=== PATIENT | female | born 1965 | race Caucasian/White ===

== ENCOUNTER 2020-03-21 12:38 | Emergency (ER) | payer OTHER ==
[~2020-03-21] VITALS: Ht 157.5 cm; Wt 49.9 kg
[~2020-03-21 12:38] MED LIST: ATRIPLA TABLET1 EACH PO; AZITHROMYCIN 2250 MG PO; AZITHROMYCIN 6600 M1 PO; BACTRIM DS TAB1 EACH PO; DIFLUCAN PO; FAMCICLOVIR500 MG PO; KEFLEX250 MG PO; LANTUS SC; LEVEMIR SUBQ; MEPRON750 MG/5 M PO; METFORMIN HCL500 MG PO; NEURONTIN 300300 M1 PO; NORVIR100 MG; NOVOLOG100 UNIT/1 SQ; NYSTATIN 1100000 U/M PO; OMEPRAZOLE40 MG PO; PERCOCET 5-3251 EACH PO; PREZISTA800 MG; PRILOSEC 20 MG20 MG PO; PROTONIX40 M2 PO; TRUVADA1 EAC1; VALCYTE450 MG; VITAMIN D1000 UNI1 PO
[2020-03-21] MEDS ORDERED: LANTUS SUBQ (12:49)
[2020-03-21] MEDS ORDERED: NOVOLIN R100 UNIT/1 SUBQ (12:50)
[2020-03-21 13:32] LABS: ANION GAP 8 mmol/L (7-16); BUN 14 mg/dL (7-18); CALCIUM 8.6 mg/dL (8.5-10.1); CHLORIDE 95 mmol/L (98-107); CO2 25 mmol/L (21-32); CREATININE 1.1 mg/dL (0.6-1.0); GLUCOSE 486 mg/dL (74-106); POTASSIUM 4.6 mmol/L (3.5-5.1); SODIUM 128 mmol/L (136-145)
[2020-03-21 13:39] LABS: ALBUMIN 3.2 g/dL (3.4-5.0); MAGNESIUM 1.9 mg/dL (1.8-2.4); SGOT 18 U/L (15-37); SGPT 12 U/L (30-65); TOTAL BILIRUBIN 0.7 mg/dL (0.2-1.0); TOTAL PROTEIN 7.2 g/dL (6.4-8.2); TROPONIN-I <0.06 ng/mL (<0.06)
[2020-03-21 13:44] LABS: ABSOLUTE NEUTROPHILS 4.9 thou/uL (1.4-8.2); EOSINOPHILS 0.9 % (0.0-3.0); HEMATOCRIT 40.4 % (37.0-47.0); HEMOGLOBIN 13.5 gm/dL (12.0-15.0); LYMPHOCYTES 23.6 % (24.0-44.0); MCH 31.9 pg (26.0-34.0); MCHC 33.4 g/dL (28.0-37.0); MCV 95.4 fL (80.0-100.0); MONOCYTES 7.6 % (1.0-8.0); PLATELET COUNT 292 thou/uL (150-400); POLYS 66.9 % (36.0-66.0); RBC 4.23 mil/uL (4.20-5.00); RDW 14.1 % (10.5-14.5); WBC 7.3 thou/uL (4.0-11.0)
[2020-03-21] MEDS ORDERED: AMOXICILLIN875 MG PO (14:14)
[2020-03-21] MEDS ORDERED: ATIVAN0.5 M1 PO (14:14)
[2020-03-21] MEDS ORDERED: MECLIZINE HCL25 M1 PO (14:15)
[2020-03-21] MEDS ORDERED: CORTISPORIN OTI10 M2 OTIC (14:17)
[2020-03-21 15:25] VITALS: BP 173/99
--- NOTE | 2020-03-23 08:22 | EKG ---
[facility] [address] ELECTROCARDIOGRAM REPORT Name: CORETTA ENNIS Room #: DEP [facility]#: [id number] Admission: 03/21/20 Attend Phys: Discharge: 03/21/20 Date of : 65 Report #: [id number] THIS REPORT FOR: cc: FAM - Family physician unknown FAM - Family physician unknown Bernardino Pruett MD [facility] THIS REPORT FOR: //name// [facility] ED Test Date: 2020-03-21 Test Time: 13:32:29 Pat Name: CORETTA ENNIS Department: Room: Gender: Resource Efficiency Manager: [facility] : 1965 Requested By: Grant Thakur Order Number: [id number] MD: Bernardino Pruett Measurements Intervals [place] Rate: 70 P: 27 AR: 192 QRS: -41 QRSD: 93 T: 40 QT: 410 QTc: 443 Interpretive Statements Sinus rhythm Inferior infarct, old Anteroseptal infarct, old Compared to ECG 10/09/2010 06:51:46 Left-axis deviation no longer present Q waves are more prominent Electronically Signed On 03-23-2020 8:21:58 CDT by Bernardino Pruett [email or web address] <ELECTRONICALLY SIGNED> By: Bernardino Pruett MD, [facility] 03/23/20 0821 1332 1332 Bernardino Pruett MD, [facility] /EPI
== END 2020-03-21 15:27 | disposition home or self-care (01) ==
LOC: ER 12:38
PROVIDERS: Emergency Medicine
DX: H66.92 Otitis media, unspecified, left ear (principal); E11.65 Type 2 diabetes mellitus with hyperglycemia; E87.1 Hypo-osmolality and hyponatremia; H81.392 Other peripheral vertigo, left ear; Z21 Asymptomatic human immunodeficiency virus [HIV] infection status; Z86.2 Personal history of diseases of the blood and blood-forming organs and certain disorders involving the immune mechanism; Z79.4 Long term (current) use of insulin; Z79.899 Other long term (current) drug therapy; Z20.828 Contact with and (suspected) exposure to other viral communicable diseases

== ENCOUNTER 2020-06-25 17:17 | Emergency (ER) | payer OTHER ==
[~2020-06-25 17:17] MED LIST changes: +AMOXICILLIN875 MG PO; +ATIVAN0.5 M1 PO; +CORTISPORIN OTI10 M2 OTIC; +LANTUS SUBQ; +MECLIZINE HCL25 M1 PO; +NOVOLIN R100 UNIT/1 SUBQ
[2020-06-25 17:32] VITALS: BP 147/78
== END 2020-06-25 18:51 | disposition left against medical advice (07) ==
LOC: ER 17:17
DX: R10.32 Left lower quadrant pain (principal); Z53.21 Procedure and treatment not carried out due to patient leaving prior to being seen by health care provider

== ENCOUNTER 2020-07-01 04:15 | Emergency (ER) | payer OTHER ==
[~2020-07-01] VITALS: Ht 152.4 cm; Wt 56.7 kg
--- NOTE | ~2020-07-01 | EMS ---
[place] [address] EMS Patient Care Report Name: CORETTA ENNIS Room #: PRE M.R.#: [id number] Admission: Attend Phys: Discharge: Date of : 65 Report #: [id number] THIS REPORT FOR: //name// Report Transmitted: 07/01/2020 05:24 EMS Care Summary [place], [place]/[facility] Incident [id number] @ 07/01/2020 03:50 Incident Location [address] [place] [address] Patient CORETTA ENNIS Female, 54 Years 1965 Patient Address [address] [place] [address] Patient History Diabetes,Human Immunodeficiency Virus Disease (HIV/AIDS),Genital Herpes, Patient Allergies Lisinopril, Patient Medications Insulin, Chief Complaint vomiting Disposition Transported No Lights/[place] Dispatch Reason Headache Transported To [facility] Narrative pt found sitting upright on couch and alert. pt a&ox4 gcs 15 and id not present in apparent distress. pt complained of nausea and vomiting x1 day. pt requested to be transported to [facility]. pt stated she could walk to ambulance. pt was assisted into ambulance. pt was transferred onto ems cot and was [place] [address] EMS Patient Care Report Name: CORETTA ENNIS Room #: [facility].R.#: [id number] Admission: Attend Phys: Discharge: Date of : 65 Report #: [id number] semi fowlers position without incident. pt was transported non emergent. pt was given an emesis bucket. pt stated she self administered 4mg zofran information technology teacher of ems. pt vomited into bucket. transport was uneventful and pt rested on ems cot. pt care was transferred to appropriate staff and ems goes back in service. pts purse and phone were left with pt. Initial Vitals @04:00P: 104,R: 20,BP: 190/92,Pain: 0/10,GCS: 15,SpO2: 98,Revised Trauma: 12, @04:10P: 90,R: 20,BP: 188/92,GCS: 15,SpO2: 98,Revised Trauma: 12, Assessments @03:56MENTAL:No Abnormalities,SKIN:No Abnormalities,HEENT:Head/Face: No Abnormalities,Eyes: No Abnormalities,Neck/Airway: No Abnormalities,LUNG SOUNDS:General: Vomiting,General: Nausea,Left Upper: No Abnormalities,Right Upper: No Abnormalities,Left Lower: No Abnormalities,Right Lower: No Abnormalities,ABDOMEN:General: Vomiting,General: Nausea,Left Upper: No Abnormalities,Right Upper: No Abnormalities,Left Lower: No Abnormalities,Right Lower: No Abnormalities,PELVIS//GI:No Abnormalities,EXTREMITIES:Left Arm: No Abnormalities,Right Arm: No Abnormalities,Left Leg: No Abnormalities,Right Leg: No Abnormalities,PULSE:NEURO:No Abnormalities,@04:02MENTAL:No Abnormalities,SKIN:No Abnormalities,HEENT:Head/Face: No Abnormalities,Eyes: No Abnormalities,Neck/Airway: No Abnormalities,LUNG SOUNDS:General: No Abnormalities,Left Upper: No Abnormalities,Right Upper: No Abnormalities,Left Lower: No Abnormalities,Right Lower: No Abnormalities,ABDOMEN:General: No Abnormalities,Left Upper: No Abnormalities,Right Upper: No Abnormalities,Left Lower: No Abnormalities,Right Lower: No Abnormalities,PELVIS//GI:No Abnormalities,EXTREMITIES:Left Arm: No Abnormalities,Right Arm: No Abnormalities,Left Leg: No Abnormalities,Right Leg: No Abnormalities,PULSE:NEURO:No Abnormalities, Impression Vomiting Procedures @03:56ALS AssessmentResponse: UnchangedSucceeded Timeline 03:49,Call Received 03:49,Dispatch Notified 03:50,Dispatched 03:52,En Route 03:55,On Scene 03:56,At Patient 03:56,ALS Assessment,Response: UnchangedSucceeded, 04:00,BP: 190/92 M,PULSE: 104,RR: 20 R,SPO2: 98 Ox,ETCO2: ,BG: ,PAIN: 0,GCS: 15, [place] [address] EMS Patient Care Report Name: CORETTA ENNIS Room #: PRE ER M.R.#: [id number] Admission: Attend Phys: Discharge: Date of : 65 Report #: [id number] 04:02,Depart Scene 04:10,BP: 188/92 M,PULSE: 90,RR: 20 R,SPO2: 98 Ox,ETCO2: ,BG: ,PAIN: ,GCS: 15, 04:12,At Destination 04:20,Call Closed Disclaimer v1.1 Copyright 2020 [employer] This EMS Care Summary contains data elements from the applicable legal record (which may be displayed differently). It is designed to provide pertinent information for the following purposes: continuity of care, clinical quality, and state data reporting. The complete legal record is available to ED staff and administrators of the receiving hospital in [employer] Patient Tracker. All data is provided "as is."
[2020-07-01] MEDS ORDERED: metformin PO (05:08)
[2020-07-01] MEDS ORDERED: ZOFRAN4 MG PO (05:09)
[2020-07-01] MEDS ORDERED: [UNRECOGNIZED DRUG - REMARK] PO (05:11)
[2020-07-01 05:18] LABS: ABSOLUTE NEUTROPHILS 8.8 thou/uL (1.4-8.2); BASOPHILS 0.7 % (0.0-2.0); EOSINOPHILS 0.8 % (0.0-3.0); HEMOGLOBIN 14.7 gm/dL (12.0-15.0); LYMPHOCYTES 14.8 % (24.0-44.0); MCH 31.9 pg (26.0-34.0); MCHC 33.4 g/dL (28.0-37.0); MCV 95.5 fL (80.0-100.0); MONOCYTES 3.4 % (1.0-8.0); PLATELET COUNT 315 thou/uL (150-400); POLYS 80.3 % (36.0-66.0); RDW 14.2 % (10.5-14.5)
[2020-07-01 07:35] LABS: ALBUMIN 3.1 g/dL (3.4-5.0); ANION GAP 8 mmol/L (7-16); BUN 15 mg/dL (7-18); CALCIUM 8.5 mg/dL (8.5-10.1); CHLORIDE 104 mmol/L (98-107); CO2 24 mmol/L (21-32); CREATININE 0.8 mg/dL (0.6-1.0); DIRECT BILIRUBIN < 0.1 mg/dL (<0.1-0.2); GLUCOSE 309 mg/dL (74-106); LIPASE 65 U/L (73-393); POTASSIUM 4.1 mmol/L (3.5-5.1); SGOT 9 U/L (15-37); SGPT 10 U/L (30-65); SODIUM 136 mmol/L (136-145); TOTAL BILIRUBIN 0.4 mg/dL (0.2-1.0); TOTAL PROTEIN 6.5 g/dL (6.4-8.2)
[2020-07-01] MEDS ORDERED: TRAMADOL 50 MG50 MG PO (08:34)
[2020-07-01] MEDS ORDERED: REGLAN 5 MG TAB5 MG PO (08:34)
[2020-07-01 08:35] VITALS: BP 167/89
[2020-07-01 08:39] LABS: URINE BILIRUBIN NEGATIVE (Negative); URINE BLOOD TRACE (Negative); URINE CLARITY CLEAR; URINE COLOR YELLOW; URINE GLUCOSE-RANDOM* 3+ (Negative); URINE KETONES 1+ (Negative); URINE LEUKOCYTES-REFLEX NEGATIVE (Negative); URINE NITRITE-REFLEX NEGATIVE (Negative); URINE PROTEIN (DIPSTICK) 2+ (Negative)
[2020-07-01 08:53] LABS: CASTS None Seen /LPF (None Seen); SQUAMOUS 4-10 Moderate /LPF (0-3)
[2020-07-01 08:54] LABS: BACTERIA-REFLEX None Seen /HPF (None Seen); CRYSTALS None Seen /LPF (None Seen); URINE RBC 0-2 Rare /HPF (0-2); URINE WBC-REFLEX 0-5 Rare /HPF (0-5)
== END 2020-07-01 08:35 | disposition home or self-care (01) ==
LOC: ER 04:15
PROVIDERS: Emergency Medicine
DX: E11.43 Type 2 diabetes mellitus with diabetic autonomic (poly)neuropathy (principal); K31.84 Gastroparesis; E11.65 Type 2 diabetes mellitus with hyperglycemia; G89.29 Other chronic pain; R10.32 Left lower quadrant pain; R11.2 Nausea with vomiting, unspecified; Z21 Asymptomatic human immunodeficiency virus [HIV] infection status; Z79.899 Other long term (current) drug therapy; Z79.4 Long term (current) use of insulin; Z88.2 Allergy status to sulfonamides

== ENCOUNTER 2020-12-25 14:25 | Emergency (ER) | payer OTHER ==
[~2020-12-25] VITALS: Ht 157.5 cm; Wt 57.1 kg
[~2020-12-25 14:25] MED LIST changes: +REGLAN 5 MG TAB5 MG PO; +TRAMADOL 50 MG50 MG PO; +ZOFRAN4 MG PO; +[UNRECOGNIZED DRUG - REMARK] PO; +metformin PO
[2020-12-25] MEDS ORDERED: TOPROL XL50 MG PO (14:54)
[2020-12-25] MEDS ORDERED: BIKTARVY 50-201 EACH PO (14:55)
[2020-12-25] MEDS ORDERED: NEURONTIN 300M300 M2 PO (14:55)
[2020-12-25 15:01] LABS: BASOPHILS 0.3 % (0.0-2.0); EOSINOPHILS 0.4 % (0.0-3.0); HEMATOCRIT 46.3 % (37.0-47.0); HEMOGLOBIN 15.4 gm/dL (12.0-15.0); MCH 33.3 pg (26.0-34.0); MCHC 33.4 g/dL (28.0-37.0); MCV 99.6 fL (80.0-100.0); MONOCYTES 3.6 % (1.0-8.0); PLATELET COUNT 314 thou/uL (150-400); POLYS 82.7 % (36.0-66.0); RBC 4.64 mil/uL (4.20-5.00); RDW 13.3 % (10.5-14.5); WBC 9.6 thou/uL (4.0-11.0)
[2020-12-25 16:46] LABS: ALBUMIN 3.1 g/dL (3.4-5.0); ANION GAP 5 mmol/L (7-16); BUN 13 mg/dL (7-18); CALCIUM 8.8 mg/dL (8.5-10.1); CHLORIDE 103 mmol/L (98-107); CO2 30 mmol/L (21-32); CREATININE 1.1 mg/dL (0.6-1.0); GLUCOSE 323 mg/dL (74-106); LIPASE 57 U/L (73-393); POTASSIUM 4.5 mmol/L (3.5-5.1); SGOT 11 U/L (15-37); SGPT 12 U/L (14-59); SODIUM 138 mmol/L (136-145); TOTAL BILIRUBIN 0.4 mg/dL (0.2-1.0); TOTAL PROTEIN 6.6 g/dL (6.4-8.2); TROPONIN-I <0.06 ng/mL (<0.06)
[2020-12-25 17:42] LABS: URINE BILIRUBIN NEGATIVE (Negative); URINE BLOOD TRACE (Negative); URINE CLARITY CLEAR; URINE COLOR YELLOW; URINE GLUCOSE-RANDOM* 3+ (Negative); URINE KETONES NEGATIVE (Negative); URINE LEUKOCYTES-REFLEX NEGATIVE (Negative); URINE NITRITE-REFLEX NEGATIVE (Negative); URINE PROTEIN (DIPSTICK) 1+ (Negative); URINE SPECIFIC GRAVITY 1.015 (1.005-1.035); URINE UROBILINOGEN 0.2 E.U./dl (0.2-1.0)
[2020-12-25 17:57] VITALS: BP 174/86
[2020-12-25 18:07] LABS: BACTERIA-REFLEX None Seen /HPF (None Seen); CASTS None Seen /LPF (None Seen); SQUAMOUS None Seen /LPF (0-3); URINE RBC 1-2 Rare /HPF (NONE SEEN); URINE WBC-REFLEX 0-5 Rare /HPF (0-5)
[2020-12-25 18:08] LABS: CRYSTALS None Seen /LPF (None Seen)
--- NOTE | 2020-12-28 08:21 | EKG ---
[place] [address] [facility] [place] [address] ELECTROCARDIOGRAM REPORT Name: CORETTA ENNIS [id number] Admission: 12/25/20 Attend Phys: Discharge: 12/25/20 Date of : 65 Report #: [id number] [facility] ED Test Date: 2020-12-25 Test Time: 15:35:05 Pat Name: CORETTA ENNIS Department: Room: Gender: F Fabrication Technician: KF : 1965 Requested By: Rush Huff Order Number: [id number] MD: Bernardino Pruett Measurements Intervals [place] Rate: 61 P: 25 WI: 176 QRS: -39 QRSD: 109 T: 30 QT: 446 QTc: 450 Interpretive Statements Sinus rhythm Septal infarct, old Possible inferior infarct, old Nonspecific ST segment abnormality Artifact in lead(s) II,III,aVR,aVL,aVF and baseline wander in lead(s) V6 Compared to ECG 03/21/2020 13:32:29 No significant change was found Electronically Signed On 12-28-2020 8:21:27 CDT by Bernardino Pruett [email or web address] <ELECTRONICALLY SIGNED> By: Bernardino Pruett MD, [facility] 12/28/20 0821 1535 1535 Bernardino Pruett MD, [facility] /EPI
== END 2020-12-25 18:20 | disposition home or self-care (01) ==
LOC: ER 14:25
PROVIDERS: Emergency Medicine
DX: E11.65 Type 2 diabetes mellitus with hyperglycemia (principal); E11.319 Type 2 diabetes mellitus with unspecified diabetic retinopathy without macular edema; K21.9 Gastro-esophageal reflux disease without esophagitis; E11.40 Type 2 diabetes mellitus with diabetic neuropathy, unspecified; Z86.73 Personal history of transient ischemic attack (TIA), and cerebral infarction without residual deficits; Z79.4 Long term (current) use of insulin; Z79.899 Other long term (current) drug therapy; Z88.2 Allergy status to sulfonamides

== ENCOUNTER 2021-01-25 12:18 | Inpatient (IN) | payer OTHER ==
[~2021-01-25] VITALS: Ht 157.5 cm; Wt 52.6 kg
[2021-01-25] VITALS (7 sets, daily range): BP systolic 119–174; BP diastolic 69–94
[~2021-01-25 12:18] MED LIST changes: +BIKTARVY 50-201 EACH PO; +NEURONTIN 300M300 M2 PO; +TOPROL XL50 MG PO
[2021-01-25 12:44] LABS: URINE BILIRUBIN NEGATIVE (Negative); URINE BLOOD TRACE (Negative); URINE CLARITY CLEAR; URINE COLOR YELLOW; URINE GLUCOSE-RANDOM* 3+ (Negative); URINE KETONES NEGATIVE (Negative); URINE LEUKOCYTES-REFLEX NEGATIVE (Negative); URINE NITRITE-REFLEX NEGATIVE (Negative); URINE PROTEIN (DIPSTICK) NEGATIVE (Negative); URINE SPECIFIC GRAVITY <= 1.005 (1.005-1.035); URINE UROBILINOGEN 0.2 E.U./dl (0.2-1.0)
[2021-01-25 12:47] LABS: ABSOLUTE NEUTROPHILS 7.3 thou/uL (1.4-8.2); BASOPHILS 0.4 % (0.0-2.0); EOSINOPHILS 0.3 % (0.0-3.0); HEMATOCRIT 41.3 % (37.0-47.0); HEMOGLOBIN 13.5 gm/dL (12.0-15.0); MCH 33.2 pg (26.0-34.0); MCHC 32.8 g/dL (28.0-37.0); MCV 101.2 fL (80.0-100.0); MONOCYTES 4.5 % (1.0-8.0); PLATELET COUNT 299 thou/uL (150-400); POLYS 81.8 % (36.0-66.0); RBC 4.08 mil/uL (4.20-5.00); RDW 13.7 % (10.5-14.5)
[2021-01-25] MEDS ORDERED: REGLAN 10 MG TA10 MG PO (13:12)
[2021-01-25] MEDS ORDERED: BIKTARVY 50-201 EACH PO (13:13)
[2021-01-25] MEDS ORDERED: ZOFRAN4 MG PO (13:13)
[2021-01-25 13:16] LABS: ALBUMIN 3.4 g/dL (3.4-5.0); ANION GAP 6 mmol/L (7-16); BUN 15 mg/dL (7-18); CALCIUM 9.1 mg/dL (8.5-10.1); CHLORIDE 93 mmol/L (98-107); CO2 28 mmol/L (21-32); CREATININE 1.1 mg/dL (0.6-1.0); DIRECT BILIRUBIN < 0.1 mg/dL (<0.1-0.2); LIPASE 84 U/L (73-393); POTASSIUM 4.8 mmol/L (3.5-5.1); SGOT 8 U/L (15-37); SGPT 9 U/L (14-59); SODIUM 127 mmol/L (136-145); TOTAL BILIRUBIN 0.4 mg/dL (0.2-1.0); TOTAL PROTEIN 7.3 g/dL (6.4-8.2); TROPONIN-I <0.06 ng/mL (<0.06)
[2021-01-25 13:19] LABS: GLUCOSE 721 mg/dL (74-106)
[2021-01-25 13:42] LABS: PHOSPHORUS 3.6 mg/dL (2.5-4.9)
--- NOTE | 2021-01-25 14:34 | EKG ---
[address] [address] ELECTROCARDIOGRAM REPORT Name: CORETTA ENNIS Room #: 170-6 ADM IN M.R.#: [id number] Admission: 01/25/21 Attend Phys: Diego Tolbert MD Discharge: Date of : 65 Report #: [id number] [facility] ED Test Date: 2021-01-25 Test Time: 13:08:01 Pat Name: CORETTA ENNIS Department: Room: 170 Gender: F Dry Cell Tester: Korin ANTONY : 1965 Requested By: Jose Roberto Edmondson Order Number: [id number] MD: Jaden Rayo Measurements Intervals [place] Rate: 66 P: 26 LA: 173 QRS: -36 QRSD: 92 T: 32 QT: 409 QTc: 429 Interpretive Statements Sinus rhythm Probable left atrial enlargement Left ventricular hypertrophy Inferior infarct, old Compared to ECG 12/25/2020 15:35:05 Left ventricular hypertrophy now present ST (T wave) deviation no longer present Myocardial infarct finding still present Electronically Signed On 01-25-2021 14:34:25 CDT by Jaden Rayo [email or web address] <ELECTRONICALLY SIGNED> By: Jaden Rayo MD, FAC 01/25/21 1434 1308 1308 Jaden Rayo MD, FAC /EPI
--- NOTE | 2021-01-25 17:21 | NUR ---
PT ARRIVED ON THE UNIT A LITTLE AFTER 1500. PT IS PLEASANT BUT COMPLAINING OF PAIN AND NAUSEA. SHE STATES THE PAIN IS FROM SUFFERING A FALL A FEW WEEKS AGO. SHE ADMITS TO USING CRACK AND NOT KEEPING TRACK OF HER SUGARS OR TAKING HER INSULIN. SHE LIVES WITH HER SIGNIFICANT OTHER WHO SHE STATES RECENTLY HAD A STROKE AND SHE HAS BEEN CARING FOR HIM. SHE IS VERY PLEASANT BUT YOU CAN TELL SHE IS HAVING A HARD TIME WITH BASIC CARES AT HOME.
[2021-01-25 21:25] LABS: CALCIUM 8.9 mg/dL (8.5-10.1); CREATININE 0.9 mg/dL (0.6-1.0)
[2021-01-25 21:30] LABS: POTASSIUM 3.8 mmol/L (3.5-5.1)
[2021-01-26] VITALS (19 sets, daily range): BP systolic 120–169; BP diastolic 66–101
[2021-01-26 00:06] LABS: GLYCOHEMOGLOBIN (HGB A1C) 11.4 % (4.8-5.6)
[2021-01-26 04:30] LABS: HEMATOCRIT 34.8 % (37.0-47.0); HEMOGLOBIN 11.7 gm/dL (12.0-15.0); MCH 33.9 pg (26.0-34.0); MCHC 33.7 g/dL (28.0-37.0); MCV 100.5 fL (80.0-100.0); RBC 3.46 mil/uL (4.20-5.00); RDW 13.6 % (10.5-14.5); WBC 7.5 thou/uL (4.0-11.0)
[2021-01-26 04:43] LABS: ALBUMIN 2.6 g/dL (3.4-5.0); CREATININE 0.8 mg/dL (0.6-1.0); MAGNESIUM 1.8 mg/dL (1.8-2.4); PHOSPHORUS 3.4 mg/dL (2.5-4.9); POTASSIUM 3.9 mmol/L (3.5-5.1)
--- NOTE | 2021-01-26 07:28 | NUR ---
Pt resting in bed, end of shift report given to oncoming RN and pt care transfered, pt resting, she stated last night she is looking formward to eating am meal, she had snack last night once medical provider changed diet order to controled carbs.
--- NOTE | 2021-01-26 09:00 | NUR ---
Chart review. Cm consult for DM education and supplies. Visited with patient at bedside, she is a & o x 3, pleasant and able to make her needs known. She lives at home with her life partner Shai who she helps in the home because he had stroke. She is getting poor vision because of her diabetes and no longer drives. use transportation through Medicaid. No DME equip, has DM supplies, and can check bs at home. Getts medication delivered to the home from [employer], if has copay the [employer] covers the difference. Run own errands. Son lives close but only can help when he is able . Provided safe net packet and goodrx card for [employer]. No anticipated needs at dc .will cont. following as needed for dc needs.
--- NOTE | 2021-01-26 16:15 | NUR ---
PT OFF INSULIN DRIP, TOLERATING PO INTAKE W/ MINIMAL NAUSEA. OUT OF BED W/ MINIMAL ASSISTANCE AND TOLERATING ACTIVITY WELL. PT PROGRESSING TOWARD GOALS.
--- NOTE | 2021-01-26 17:41 | NUR ---
REPORT CALLED TO 4W RECEIVING NURSE.
--- NOTE | 2021-01-26 18:07 | NUR ---
PT TRANSFERRED IN STABLE CONDITION TO ROOM 454 VIA W/C. PT ARRIVED TO NEW ROOM WITHOUT ANY DIFFICULTY. RECEIVING RN AT BEDSIDE.
--- NOTE | 2021-01-26 19:51 | NUR ---
Received pt from the ICU after pt has her dinner. Came on a wc, was steady on her gait when trasnferring from wc to bed. No nausea or vomiting was noted. Requested for more food pt stated she was atill hungryu and thisty. Pt is a diabetic. runs sinus rhythm on the tele. No signs or verbalizations of distress noted. POC followed, endorsed to the night nurse.
[2021-01-27 05:32] LABS: ABSOLUTE NEUTROPHILS 4.1 thou/uL (1.4-8.2); BASOPHILS 0.9 % (0.0-2.0); EOSINOPHILS 0.5 % (0.0-3.0); HEMATOCRIT 34.5 % (37.0-47.0); HEMOGLOBIN 11.4 gm/dL (12.0-15.0); LYMPHOCYTES 36.2 % (24.0-44.0); MCH 33.5 pg (26.0-34.0); MCHC 33.1 g/dL (28.0-37.0); MCV 101.3 fL (80.0-100.0); MONOCYTES 4.8 % (1.0-8.0); PLATELET COUNT 274 thou/uL (150-400); POLYS 57.6 % (36.0-66.0); RDW 13.7 % (10.5-14.5); WBC 7.1 thou/uL (4.0-11.0)
[2021-01-27 06:07] LABS: ALBUMIN 2.2 g/dL (3.4-5.0); CALCIUM 7.8 mg/dL (8.5-10.1); MAGNESIUM 1.8 mg/dL (1.8-2.4); POTASSIUM 4.1 mmol/L (3.5-5.1); TOTAL BILIRUBIN 0.2 mg/dL (0.2-1.0); TOTAL PROTEIN 5.1 g/dL (6.4-8.2)
--- NOTE | 2021-01-27 07:38 | NUR ---
Assumed pt care at 1900. A/OX4,VSS. C/o nausea and pain to left hip medicated per EMAR with relief reported. Pt is up to BR with SBA/IV pole,slow gait. Skin intact. SB on telemetry. IVF infusing via RAC w/o any problems. Fall precautions in place.
[2021-01-27 08:00] VITALS: BP 154/86
[2021-01-27 13:39] VITALS: BP 154/86
--- NOTE | 2021-01-27 14:30 | NUR ---
ASSUMED CARE OF PATIENT AT SHIFT CHANGE. ASSESSMENT CHARTED. MEDICATIONS ADMINISTERED PER EMAR. VSS. PATIENT IS A&OX4 AND MAKES NEEDS KNOWN HOWVEVER CAN BE FORGETFUL AT TIMES; BED ALARM ON AND FALL PRECAUTIONS IN PLACE. FSBS STABLE; INSULIN ADMINISTERED PER ORDERS. PRN PAIN ANALGESIC ADMINISTERED NEEDED FOR PAIN ON L SIDE. PATIENT WAS SEEN BY PROVIDER THIS DAY AND CLEARED FOR DISCHARGE. CAB VOUCHER FILLED OUT AND TO BE GIVEN TO PATIENT. IV'S DISCONTINUED. PATIENT SB ON TELEMETRY W NO OTHER ISSUES. PATIENT DENIED NEEDS OTHERWISE. WILL CONTINUE TO MONITOR UNTIL DISCHARGE
[2021-01-27] MEDS ORDERED: HUMALOG100 UNIT/1 SUBQ (14:39)
[2021-01-27] MEDS ORDERED: LANTUS SUBQ (14:39)
[2021-01-27] MEDS ORDERED: MELATONIN5 M1 PO (14:39)
[2021-01-27] MEDS ORDERED: ACETAMINOPHEN325 M1 PO (14:39)
--- NOTE | 2021-01-27 15:06 | NUR ---
CARE TEAM INDICATED THAT PT IS MEDICALLY STABLE TO DC HOME THIS DAY. CM MET WITH PT AT BEDSIDE AND SHE INDICATED SHE WAS INTERESTED IN HH UPON DC. [place] INDICATED NO PREFERENCE IN PROVIDERS. REFERRAL SENT TO [facility]. THEY ARE ABLE TO ACCEPT. CM PROVIDED PT A CAB VOUCHER FOR DC HOME THIS DAY. ORDERS FAXED TO [facility]. NO OTHER CM INTERVENTION INDICATED. CASE CLOSED.
== END 2021-01-27 16:20 | disposition home health service (06) | DRG 638 ==
LOC: ER 12:18 → EROBS 14:08 → ICU 14:08 → 4W 01-26 18:41
PROVIDERS: Nurse Practitioner; Nurse Practitioner Family; ADMIT Hospitalist; ATTEND Hospitalist
DX: E10.10 Type 1 diabetes mellitus with ketoacidosis without coma (principal); E44.0 Moderate protein-calorie malnutrition; K21.9 Gastro-esophageal reflux disease without esophagitis; F17.210 Nicotine dependence, cigarettes, uncomplicated; E10.40 Type 1 diabetes mellitus with diabetic neuropathy, unspecified; F12.90 Cannabis use, unspecified, uncomplicated; Z88.2 Allergy status to sulfonamides; Z88.8 Allergy status to other drugs, medicaments and biological substances; Z68.21 Body mass index [BMI] 21.0-21.9, adult; Z91.14 Patient's other noncompliance with medication regimen; Z79.899 Other long term (current) drug therapy
CPT/HCPCS: 10045; 10047; 10078

== ENCOUNTER 2021-06-06 15:53 | Inpatient (IN) | payer OTHER ==
[~2021-06-06] VITALS: Ht 152.4 cm; Wt 55.6 kg
--- NOTE | ~2021-06-06 | HC ---
[facility] [place] [address] CONSULTATION Name: CORETTA ENNIS Room #: 459-P ADM IN M.R.#: [id number] Admission: 06/06/21 Attend Phys: Suzanne Ruiz MD Discharge: Date of : 65 Report #: [id number] THIS REPORT FOR: cc: Bernardino Pierre,Bernardino Diggs,Luis Ramachandran MD ~ DATE OF SERVICE: 06/09/2021 HISTORY OF PRESENT ILLNESS: The patient is a 55-year-old female, admitted with severe dizziness, room was spinning; severe headache. MRI of the brain was negative. She has worsening vision with question of diabetic retinopathy. She is complicated with history of diabetes mellitus type 2 and HIV, and with decreased vision, has had problems taking her insulin. She also has a history of polysubstance abuse. She has had a decline in her function and is noted to have significant balance issues, and we are seeing her in Rehabilitation Medicine consultation. Her prior medical history includes HIV, diabetes mellitus type 2. Apparently, gets her care from [facility]. Noted to be losing her vision over the last month and having difficulty caring for herself. Apparently, not taking a shower in over a month. Sugars were noted to be close to 400 in the Emergency Room. Her sugars have been in upper 200s and she was at 301, noted to be 395 on admission. PAST MEDICAL HISTORY: Also includes PTSD, depression. HABITS: Include cocaine and marijuana usage, with polysubstance abuse and daily tobacco. SOCIAL HISTORY: Lives with a partner who has had a stroke, and they care for each other. This is a house and there is 1 step in, with 5 steps inside. She notes she did not utilize an assistive device before, but indicated that she went up and down the steps on her bottom in part because of her decreased vision. There is a son who assists with groceries. MEDICATIONS: Please see the full MAR. ALLERGIES: LISTED BACTRIM/TRIMETHOPRIM. REVIEW OF SYSTEMS: Poor dentition. No chest pain, shortness of breath or abdominal discomfort. PHYSICAL EXAMINATION: GENERAL: A 55-year-old small statured, thin female in no obvious distress. She has obvious decreased vision with her diabetes. VITAL SIGNS: Temperature 36.2, pulse 102, respirations 16, blood pressure 110/76. NEUROLOGIC: She was able to follow with EOMs, but has poor visual acuity. [facility] [address] [place] [address] CONSULTATION Name: CORETTA ENNIS Room #: 459-P [facility] IN ..#: [id number] Admission: 06/06/21 Attend Phys: Suzanne Ruiz MD Discharge: Date of : 65 Report #: [id number] poor dentition. Facies appeared symmetric. Functional range of motion of both upper extremities, strength is probably a grade 4-/5. DTRs are trace to 1. Lower extremities, no focal calf swelling. Functional range of motion, strength is a grade 3+/5 to 4-/5. She is min assist sit to stand, gait 120 feet min assist with a front-wheeled walker, but she is known to have definite decreased balance and is a high fall risk. Lower extremity dressing is min assist. ASSESSMENT: A 55-year-old female with the following problem list: 1. Dizziness/vertigo/significant gait instability and is a high fall risk. 2. Visual changes with apparent diabetic retinopathy. 3. Human immunodeficiency virus. 4. Diabetes mellitus type 2. 5. Extensive dental caries. 6. Polysubstance abuse. 7. Difficulties taking insulin with her decreased vision. 8. Tobacco abuse. PLAN: She does have an involved significant other who is supportive as well as a son who assists with groceries. She does have ____ for an acute in-hospital inpatient rehabilitation stay, with the goal of further improving her strength, endurance, balance and fall prevention. We will need to assess further assistance for her. Insurance precertification issues to be checked regarding an acute [address] [place] [address] in-hospital inpatient rehabilitation stay. She does have the multiple health analytics consultant physicians who are following. We will be glad to assist regarding her rehab therapy needs. By: 1421 0007 Luis Mari MD /nt
--- NOTE | ~2021-06-06 | HC ---
[facility] [place] [address] CONSULTATION Name: CORETTA ENNIS Room #: 459-P ADM IN M.R.#: [id number] Admission: 06/06/21 Attend Phys: Suzanne Ruiz MD Discharge: Date of : 65 Report #: [id number] THIS REPORT FOR: cc: Bernardino Pierre,Bernardino Gaston,Michael Mcleod MD ~ DATE OF SERVICE: 06/09/2021 HISTORY OF PRESENT ILLNESS: A 55-year-old female patient who was evaluated by me for neurological etiology for the patient's multiple symptoms. She was admitted with dizziness. She is a poor historian. She says the dizziness is probably going on for several weeks. First, she said 4-6 weeks and then she said it maybe longer than that. She also had some visual disturbances and some of the visual disturbances includes seeing double. She is a diabetic, but was not taking the medication and her blood sugar was uncontrolled when she came in. REVIEW OF SYSTEMS: Indicate that she is HIV positive. I do not think she is taking her medication properly. When she came in, her blood sugar was close to 400 here. It looks like her GFR has significantly decreased after she came in. One of the record has indicated that she also had history of atrial fibrillation. She said she had GERD, but it looks like she also had gastroparesis. She has a history of vomiting. She has been seen by multiple consultants here and those consultants does include Infectious Disease. She says she did not have any stroke before. She has visual disturbances. She denies any chest pain, respiratory difficulty, , musculoskeletal, constitutional, dermatological, hematological, psychiatric, throat, allergic symptom associated with present symptomatology. PAST MEDICAL HISTORY: Positive for being HIV positive. FAMILY HISTORY: Negative for early age stroke. SOCIAL HISTORY: She says she does have a history of tobacco disorder, but record indicates she has a history of depression and tubal ligations in the past. Social history also indicates that she lives with a partner who has own medical problems. PHYSICAL EXAMINATION: NEUROLOGIC: She is alert. She is responsive. She can follow simple commands. She can tell me what month it is and she can tell me what year it is. She knew what hospital she was in and she knew the name of the president. Cranial nerve examination II-XII indicates that she has some trouble with double vision. By looking towards the right, I could not look at the patient's fundus very well. She does not appear to have any facial palsy and [place] [address] CONSULTATION Name: CORETTA ENNIS Room #: 459-P [facility] IN M.R.#: [id number] Admission: 06/06/21 Attend Phys: Suzanne Ruiz MD Discharge: Date of : 65 Report #: [id number] examination II-XII looks mostly unremarkable. She moves all 4 extremities. She does reasonably well with the position sense in the lower extremities, but she says that she cannot feel the middle of the leg on both sides symmetrically. Her pulses are nicely palpable on both sides. Her tone is unremarkable. She does not have much ryigmx-oe-hvls abnormality. She is thinly built individual. She has no edema. There is no carotid bruit. Her hearing and vision looks adequate. CARDIAC: Appear unremarkable. RESPIRATORY: Indicates no respiratory difficulty. LABORATORY DATA: Her white count is 8.7. GFR is only 36, which is significantly decreased since earlier this year. She had an MRI done and that MRI was reviewed and MRI does not appear to be showing any definite abnormality. IMPRESSION AND RECOMMENDATIONS: It is unlikely that there is any neurological etiology for the patient's symptoms. I will suggest consulting ENT, which is most likely etiology and doing some other systemic workup and consideration is being given to send her to the correction because of her inability to take care of herself. She definitely needs an Ophthalmology consult, but no oil well services dispatcher comes here. I am not sure how you are going to arrange that, but that is what she needs. My recommendation was: 1. Get an ENT consult to see if this dizziness is because of some ENT pathology. 2. Get an Ophthalmology consult done. 3. If she does have atrial fibrillation as some of the record indicate, then I will suggest consulting Cardiology. I will get a carotid Doppler done with vertebral to make sure there is an antegrade flow and I ordered an echocardiogram. Those things are to complete the workup, but I believe the emphasis should be in this patient to make sure there is no pathology there by consulting above consultants and taking care of her systemic problems including pretty significant diabetes. Thank you very much for this referral and if you have any questions, please feel free to contact me. By: 1821 [id number] Michael Mascorro MD /chloe
--- NOTE | ~2021-06-06 | EMS ---
[place] [id number] EMS Patient Care Report Name: CORETTA ENNIS Room #: 170-12 ADM IN M.R.#: [id number] Admission: 06/06/21 Attend Phys: Suzanne Ruiz MD Discharge: Date of : 65 Report #: [id number] THIS REPORT FOR: //name// Report Transmitted: 06/06/2021 17:06 EMS Care Summary [place], [place]/[facility] Incident [id number] @ 06/06/2021 15:15 Incident Location [address] [place] [address] Patient CORETTA ENNIS Female, 55 Years 1965 Patient Address [address] [place] [address] Patient History Diabetes,Gastro-Esophageal Reflux Disease (GERD),Human Immunodeficiency Virus Disease (HIV/AIDS), Patient Allergies No known allergies, Chief Complaint dizzy Disposition Transported No Lights/[place] Dispatch Reason Sick Person Transported To [facility] Narrative pt found lying on the couch, a&o. she states she has been dizzy for a wk after a fall. she c/o feeling like her L ear is "full". she is req eval at [facility]. pt to cot, tx as listed in flow chart. unable to find suitable site for IV. pt given oral Zofran for nausea. BGL 363. pt reports being current on meds except for today. report to staff Rm [address] [place] [address] EMS Patient Care Report Name: CORETTA ENNIS Room #: 170- ADM IN M.R.#: [id number] Admission: 06/06/21 Attend Phys: Suzanne Ruiz MD Discharge: Date of : 65 Report #: [id number] Initial Vitals @15:37P: 86,R: 18,BP: 137/83,Pain: 0/10,GCS: 15,Glucose: 363,SpO2: 99,Revised Trauma: 12, Assessments @15:30MENTAL:No Abnormalities,SKIN:No Abnormalities,HEENT:Head/Face: Other,LUNG SOUNDS:General: Nausea,ABDOMEN:General: Nausea,PELVIS//GI:EXTREMITIES:PULSE:Radial: 2+ Normal,NEURO: Impression Dizziness Procedures @15:30 ALS Assessment Response: Unchanged @15:35 Stretcher Response: Unchanged @15:40 3-Lead ECG Response: Unchanged @15:42 Zofran - 4 Milligrams (mg) - Oral Response: Unchanged Timeline 15:13,Call Received 15:13,Dispatch Notified 15:15,Dispatched 15:16,En Route 15:29,On Scene 15:30,At Patient 15:30,ALS Assessment,Response: Unchanged 15:35,Stretcher,Response: Unchanged 15:37,BP: 137/83 M,PULSE: 86,RR: 18 R,SPO2: 99 Ox,ETCO2: ,B,PAIN: 0,GCS: 15, 15:38,Depart Scene 15:40,3-Lead ECG,Response: Unchanged 15:42,Zofran - 4 Milligrams (mg) - Oral,Response: Unchanged 15:50,At Destination 16:04,Call Closed Disclaimer v1.1 Copyright 2020 [employer] This EMS Care Summary contains data elements from the applicable legal record (which may be displayed differently). It is designed to provide pertinent information for the following purposes: continuity of care, clinical quality, and state data reporting. The complete legal record is available to ED staff and administrators of the receiving hospital in [employer]'s Patient Tracker. All data is provided "as is."
[~2021-06-06 15:53] MED LIST changes: +ACETAMINOPHEN325 M1 PO; +HUMALOG100 UNIT/1 SUBQ; +MELATONIN5 M1 PO; +REGLAN 10 MG TA10 MG PO
[2021-06-06 16:01] VITALS: BP 143/82
[2021-06-06 16:21] LABS: ABSOLUTE NEUTROPHILS 6.1 thou/uL (1.4-8.2); BASOPHILS 0.5 % (0.0-2.0); EOSINOPHILS 0.4 % (0.0-3.0); HEMATOCRIT 44.3 % (37.0-47.0); HEMOGLOBIN 14.6 gm/dL (12.0-15.0); LYMPHOCYTES 19.4 % (24.0-44.0); MCH 32.3 pg (26.0-34.0); MCHC 32.9 g/dL (28.0-37.0); MCV 98.4 fL (80.0-100.0); MONOCYTES 5.8 % (1.0-8.0); PLATELET COUNT 310 thou/uL (150-400); POLYS 73.9 % (36.0-66.0); RDW 14.1 % (10.5-14.5); WBC 8.2 thou/uL (4.0-11.0)
[2021-06-06 16:30] LABS: CREATININE 1.7 mg/dL (0.6-1.0); POTASSIUM 4.7 mmol/L (3.5-5.1)
[2021-06-06 16:40] LABS: ALBUMIN 3.4 g/dL (3.4-5.0); TOTAL BILIRUBIN 0.4 mg/dL (0.2-1.0); TOTAL PROTEIN 7.3 g/dL (6.4-8.2)
[2021-06-06 18:06] LABS: URINE BLOOD 1+ (Negative); URINE COLOR YELLOW; URINE GLUCOSE-RANDOM* 3+ (Negative); URINE KETONES 3+ (Negative); URINE LEUKOCYTES-REFLEX NEGATIVE (Negative); URINE NITRITE-REFLEX NEGATIVE (Negative); URINE PROTEIN (DIPSTICK) 1+ (Negative); URINE SPECIFIC GRAVITY 1.025 (1.005-1.035); URINE UROBILINOGEN 0.2 E.U./dl (0.2-1.0)
[2021-06-06 18:09] LABS: ICTOTEST (BILI CONFIRMATORY) Negative (Negative); URINE BILIRUBIN NEGATIVE (Negative); URINE CLARITY SL HAZY
[2021-06-06 18:18] LABS: SQUAMOUS 4-10 Moderate /LPF (0-3); URINE RBC 1-2 Rare /HPF (NONE SEEN); URINE WBC-REFLEX 0-5 Rare /HPF (0-5)
[2021-06-06 18:19] LABS: BACTERIA-REFLEX 1-9 Few /HPF (None Seen); CASTS None Seen /LPF (None Seen); CRYSTALS None Seen /LPF (None Seen); MUCUS None Seen strn/LPF (None Seen); YEAST-REFLEX Present (None Seen)
[2021-06-06 18:30] VITALS: BP 113/69
[2021-06-06 20:00] VITALS: BP 123/62
[2021-06-06] MEDS ORDERED: AMITRIPTYLINE H25 M2 PO (21:04)
[2021-06-07 00:50] VITALS: BP 122/82
--- NOTE | 2021-06-07 04:46 | NUR ---
ASSUMED CARE AT 1900, PT ADMITTED FROM THE ED WITH DIZZINESS AND HEADACHE, COMPLIANT TO TX, NO ADVERSE REACTION NOTED, VITAL SIGNS STABLE, REPORTS NO PAIN OR DISCOMFORT, ASSIST X 1 WITH AMBULATION WITH ASSUMED PROTOCOL, SLEPT THROUGH THE NIGHT, TOILETED NEEDED. WILL CONTINUE TO MONITOR.
[2021-06-07 05:06] VITALS: BP 116/78
[2021-06-07 05:22] LABS: HEMATOCRIT 41.1 % (37.0-47.0); HEMOGLOBIN 13.5 gm/dL (12.0-15.0); MCH 32.4 pg (26.0-34.0); MCHC 32.8 g/dL (28.0-37.0); MCV 98.8 fL (80.0-100.0); RBC 4.15 mil/uL (4.20-5.00); RDW 13.9 % (10.5-14.5); WBC 6.5 thou/uL (4.0-11.0)
[2021-06-07 05:33] LABS: CALCIUM 8.8 mg/dL (8.5-10.1); CREATININE 1.5 mg/dL (0.6-1.0); POTASSIUM 3.8 mmol/L (3.5-5.1)
--- NOTE | 2021-06-07 07:09 | EKG ---
[place] [address] [facility] [place] [address] ELECTROCARDIOGRAM REPORT Name: CORETTA ENNIS Room #: 459-P ADM IN M.R.#: [id number] Admission: 06/06/21 Attend Phys: Suzanne Ruiz MD Discharge: Date of : 65 Report #: [id number] [facility] ED Test Date: 2021-06-06 Test Time: 15:56:32 Pat Name: CORETTA ENNIS Department: Room: [facility] Gender: F Relief Manager: SILKE : 1965 Requested By: Luis Sr Order Number: [id number] MD: Bernardino Pruett Measurements Intervals [place] Rate: 68 P: 47 OR: 184 QRS: -37 QRSD: 95 T: 93 QT: 416 QTc: 443 Interpretive Statements Sinus rhythm Inferior infarct, old Nonspecific ST and T wave abnormality Compared to ECG 01/25/2021 13:08:01 No significant changes found Electronically Signed On 06-07-2021 7:09:16 CDT by Bernardino Pruett [email or web address] <ELECTRONICALLY SIGNED> By: Bernardino Pruett MD, [facility] 06/07/21 0709 D: 10/1555 155 Bernardino Pruett MD, FACC /EPI
[2021-06-07 10:54] VITALS: BP 96/66
--- NOTE | 2021-06-07 14:09 | NUR ---
PT ADMITTED RELATED TO DIZZINESS, HYPERGLYCEMIA, AND LOW. CM REVIEWED CHART AND SPOKE WITH CARE TEAM. CM MET WITH PT AT BEDSIDE THIS DAY. PT WAS SLEEPY BUT OTHERWISE APPEARED TO BE A&O X4. CM ROLE INTRODUCED. PT INDICATED THAT SHE LIVES IN A HOUSE WITH HER LIFE PARTNER REBECA PIZARRO. SHE INDICATED THERE IS ONE STEP TO ENTER AND A FULL FLIGHT TO BASEMENT WHERE LAUNDRY IS. PT INDICATED SHE HAD BEEN INDEPENDENT WITH GAIT AND ALDS APPLICATION PENETRATION TESTER. PT INIDCATED SHE HAS DM SUPPLIES AT HOME BUT THAT SHE NOW CAN'T SEE HER GLUCOMETER. PT INDICATED SHE GETS HER MEDICATIONS DELIVERED THROUGH [facility] [employer]. PT HAS CO PAYS PAID BY LATOYA PORTILLO. PT INDICATED HAS USED [facility] IN THE PAST. PT INDICATED THAT SHE PLANS TO RETURN HOME ONCE MEDICALLY STABLE. PT WAS RECEPTIVE TO CM COMPLETEING ONLINE REFERRAL FOR [facility]. CM TO SUBMIT. CM FOLLOWING REGARDING DC PLANNING. PT HAS DR. GIANNI BALL LISTED PCP BUT NURSE CALLED THERE TO TRY TO GET MED LIST AND THEY INDICATED THAT PT HADN'T HAD MEDS FILLED THROUGH THEM SINCE 2019.
[2021-06-07 18:13] LABS: AMP/METHAMP Negative (Negative); BARBITURATES Negative (Negative); BENZODIAZEPINES Negative (Negative); COCAINE POSITIVE (Negative); METHADONE Negative (Negative); OPIATES Negative (Negative); PCP Negative (Negative)
--- NOTE | 2021-06-07 20:11 | NUR ---
Assumed care to Pt at shift change, A/O x 4, appears very sleep , no pain reported, all meds given, SBA, VSS, Gluc controled per order, all meds given , Pt takes pills whole with water fair appetite, NO BM but adequate urinary output. Labs reviewed no other concerns. POC to be cont'd
[2021-06-07 22:30] VITALS: BP 116/78
[2021-06-08 04:05] LABS: CREATININE 1.6 mg/dL (0.6-1.0)
[2021-06-08 04:24] VITALS: BP 112/66
[2021-06-08 04:24] LABS: POTASSIUM 4.8 mmol/L (3.5-5.1)
[2021-06-08 04:52] LABS: ABSOLUTE NEUTROPHILS 5.6 thou/uL (1.4-8.2); BASOPHILS 0.6 % (0.0-2.0); EOSINOPHILS 0.6 % (0.0-3.0); HEMATOCRIT 42.4 % (37.0-47.0); HEMOGLOBIN 13.7 gm/dL (12.0-15.0); MCH 32.4 pg (26.0-34.0); MCHC 32.4 g/dL (28.0-37.0); MCV 100.1 fL (80.0-100.0); PLATELET COUNT 261 thou/uL (150-400); POLYS 64.8 % (36.0-66.0); RBC 4.23 mil/uL (4.20-5.00); RDW 14.1 % (10.5-14.5); WBC 8.7 thou/uL (4.0-11.0)
--- NOTE | 2021-06-08 05:51 | NUR ---
ASSUMED CARE OF PT AT 1900. PT ASSESSED TO BE AOX4 FEMALE WITH HYPERGLYCEMIA AND LOW. SHE RUNS NSR ON TELEMETRY AND AMBULATES X1 SBA TO THE COMMODE, CALLS APPROPRIATELY. NAUSEA CONTROLLED WITH MECLIZINE PO SCHEDULED. PT BLOOD SUGAR THROUGHOUT THE NIGHT REMAINED HIGH. REEDUCATED PT NOT TO EAT TOO MANY SNACKS DUE TO HER ELEVATING SUGARS. PT SEEMS TO EAT FREQUENT SNACKS. 12 UNIT SHORT ACTING AND 15 UNIT LANTUS GIVEN. IN AM, LABS SHOWED CONTINUED HYPERGYLCEMIA OVER 350. NOTIFIED LUIS ARMANDO SCHRADER WHO ORDERED X1 DOSE INSULIN AND INCREASED INSULING TO MEDIUM DOSE SLIDING SCALE. WILL GIVE NOW. PT RESTING IN ROOM, NO COMPLAINTS, WILL CONTINUE TO MONITOR.
[2021-06-08 07:08] LABS: GLYCOHEMOGLOBIN (HGB A1C) 13.3 % (4.8-5.6)
[2021-06-08 07:41] VITALS: BP 104/71
[2021-06-08 11:14] VITALS: BP 95/68
[2021-06-08 15:08] LABS: CD3 % 74.9 % (57.5-86.2); CD4 % 24.3 % (30.8-58.5); CD4:CD8 0.49 (0.92-3.72); CD8 % 49.1 % (12.0-35.5)
[2021-06-08 15:19] VITALS: BP 115/79
--- NOTE | 2021-06-08 16:50 | NUR ---
CARE TEAM RECOMMENDING POST ACUTE CARE STAY. PT INDICATED SHE IS RECEPTIVE. CM CALLED PT'S INSURANCE AND IT WAS INIDCATED THAT HER HEALTH BLUE PLAN IS LIKE MEDICAID THEY ONLY COVER ACUTE REAHB LEVEL OF CARE NOT SKILLED SERVICES. CM TO INFORM PT AND INQUIRE TO IF SHE WANTS REFERRALS SENT TO IN NETWORK ACUTE REHAB FACILITIES.
--- NOTE | 2021-06-08 17:20 | NUR ---
ASSUMED CARE FOR PT AT SHIFT CHANGE, A/O X 4, SAFE AND COMFORTABLE, LOOKS SLEEPY IN THE EALRY HRS OF THE SHIFT, BUT WELL AWAKEN LATER ON WATCHING TV; PT WAS ON CHAIR FOR ABOUT 2 HRS, ON RA, MORNING GLUC WAS 409, PHYSICIAN CONTACTED, INSULINE PER SS GIVEN, PT STABLE, ADEQUATE APPETITE AND MOOD, AFEBRILE, VSS, SATISFACTORY I&O'S, ALL MEDS GIVEN PER ORDER, PAIN MANAGED, LABS REVIEWED ASSESSMENT RECORDED. POC TO BE CONTNUED.
[2021-06-08 19:16] VITALS: BP 114/76
[2021-06-09 00:41] VITALS: BP 113/69
[2021-06-09 04:53] VITALS: BP 120/71
[2021-06-09 06:40] LABS: CREATININE 1.5 mg/dL (0.6-1.0); POTASSIUM 4.1 mmol/L (3.5-5.1)
[2021-06-09 07:00] VITALS: BP 118/76
--- NOTE | 2021-06-09 07:26 | NUR ---
ASSUMED CARE OF PT AT 1900. PT CONTINUES TO BE AOX4 FEMALE WITH HYPERGLYCEMIA AND LOW. PT WAS ASSESSED BY ID MD BLAIR TODAY, AND WILL BE TESTED FOR TB. PT RESTED THROUGHOUT THE NIGHT WITH NO COMPLAINTS, VSS. PAIN CONTROLLED WITH TYLENOL AND NAUSEA WITH SCHEDULED MECLIZINE. BLOOD SUGARS REMAINED HIGH THIS PM, REACHING 300. MAY NEED EVEN FURTHER MANAGEMENT OF HER UNCONTROLLED DM. SLEEPING IN ROOM NOW, WILL CONT TO MONITOR.
[2021-06-09 12:00] VITALS: BP 110/76
--- NOTE | 2021-06-09 15:34 | NUR ---
ASSUMED CARE AT SHIFT CHANGE. PT A/0 X 4, FLAT AFFECT. PT DENIES PAIN THUS FAR. WORKED WITH THERAPY AND WALKED THE KESSLER TODAY WITH GOOD ENDURANCE. UP TO BATHROOM WITH X 1 ASSIST. HAD GOOD APPETITE FOR BREAKFAST AND LUNCH. MOVED PT TO HIGH DOSE SS DUE TO BS TRENDS. NEURO CONSULTED FOR DIZZINESS TODAY. HOME ANTIVIRAL MED REQUESTED, BROUGHT IN, AND SENT TO PHARM FOR DISPENSING. LABS NOTED. WILL CONT TO MONITOR AND FOLLOW POC.
--- NOTE | 2021-06-09 15:35 | NUR ---
5N CONULTED. CM FOLLOWING REGARDING DC PLANNING.
[2021-06-09 17:00] VITALS: BP 144/87
[2021-06-09 19:37] VITALS: BP 144/83
[2021-06-10 00:41] VITALS: BP 122/71
--- NOTE | 2021-06-10 04:00 | NUR ---
ASSUMED PT CARE THIS PM. PT IS ALERT AND ORIENTED X4. BG WAS DONE AND MEDS WERE GIVEN PER EMAR ORDERS. PT C/O NAUSEA WHICH WAS MANAGED BY PRN MEDS. PT DID NOT VERBALIZE ANY CONCERNS. PT IS ON RA. FALL PRECAUTIONS IN PLACE. WILL CONTONUE TO MONITOR.
[2021-06-10 04:06] LABS: IgA 520 mg/dL (87-352); IgG 994 mg/dL (586-1602); IgM 80 mg/dL (26-217)
[2021-06-10 04:42] VITALS: BP 125/71
[2021-06-10 07:14] VITALS: BP 132/75
[2021-06-10 11:50] VITALS: BP 134/85
--- NOTE | 2021-06-10 14:12 | NUR ---
PT WAS SEEN BY NEURO, ENT AND CARDIOLOGY CONSULTED. PT HAVING ECHO. CM RECEIVED PERMISSION FOR PT TO BE TAKEN TO SEE OPTHALMOLOGIST HERE PRIOR TO POSSIBLE DC TO 5N THIS DAY. CM SPOKE WITH OFFICE CAMPAIGN ANALYST TO ACCOMPANY PT TO OFFICE THIS AFTERNOON. PT TO DC TO 5N LATER THIS AFTERNOON. CM FOLLOWING REGARDING DC PLANNING.
--- NOTE | 2021-06-10 15:36 | 2DMMODE ---
[facility] [place] [address] 2 D/M-MODE ECHOCARDIOGRAM Name: CORETTA ENNIS Room #: 459-P ADM IN M.R.#: [id number] Admission: 06/06/21 Attend Phys: Suzanne Ruiz MD Discharge: Date of : 65 Report #: [id number] THIS REPORT FOR: cc: Bernardino Pierre,Jaden Olmstead MD [facility] ~ APPROVED REPORT Study performed: 06/10/2021 13:51:09 EXAM: Comprehensive 2D, Doppler, and color-flow Echocardiogram Patient Location: Bedside Room #: 459 Status: routine BSA: 1.51 HR: 82 bpm BP: 134/85 mmHg Rhythm: NSR Other Information Study Quality: Good Indications Diabetes Dizziness Echo Enhancing Agent Indication: Rule out Shunt Agent(s) / Amount(s) Used: Agitated Saline 7 cc 2D Dimensions RVDd: 25.68 mm IVSd: 14.54 (7-11mm) LVOT Diam: 18.19 (18-24mm) LVDd: 32.51 mm PWd: 16.32 (7-11mm) Ascending Ao: 30.18 (22-36mm) LVDs: 22.35 (25-40mm) Left Atrium: 34.08 (27-40mm) Aortic Root: 27.96 mm IVC: 11.00 mm Volumes Left Atrial Volume (Systole) Single Plane 4CH: 25.47 mL Single Plane 2CH: 27.81 mL LA ESV Index: 20.00 mL/m2 [facility] [place] [address] 2 D/M-MODE ECHOCARDIOGRAM Name: CORETTA ENNIS Room #: 459-P [facility] IN M.R.#: [id number] Admission: 06/06/21 Attend Phys: Suzanne Ruiz MD Discharge: Date of : 65 Report #: [id number] Aortic Valve AoV Peak Amandeep.: 1.43 m/s AO Peak Gr.: 8.20 mmHg LVOT Max P.28 mmHg LVOT Max V: 1.03 m/s JOSEPH Vmax: 1.88 cm2 Mitral Valve E/A Ratio: 0.7 MV Decel. Time: 256.64 ms MV E Max Amandeep.: 0.65 m/s MV A Amandeep.: 0.97 m/s MV PHT: 74.43 ms IVRT: 124.57 ms Pulmonary Valve PV Peak Amandeep.: 0.94 m/s PV Peak Gr.: 3.53 mmHg Pulmonary Vein P Vein S: 0.45 m/s P Vein A: 0.23 m/s P Vein D: 0.28 m/s P Vein A Dur.: 129.2 msec P Vein S/D Ratio: 1.61 Tricuspid Valve TR Peak Amandeep.: 2.10 m/s TR Peak Gr.: 17.57 mmHg PA Pressure: 23.00 mmHg Left Ventricle The left ventricle is normal size. There is normal LV segmental wall motion. Mild to moderate concentric left ventricular hypertrophy. The left ventricular systolic function is normal. The left ventricular ejection fraction is within the normal range. LVEF is 55-60%. Grade I - abnormal relaxation pattern. Right Ventricle The right ventricle is normal size. The right ventricular systolic function is normal. Atria The left atrium size is normal. Injection of contrast documented a small interatrial shunt. The right atrium size is normal. Aortic Valve The aortic valve is normal in structure. No aortic regurgitation is present. There is no aortic valvular stenosis. [facility] [address] [place] [address] 2 D/M-MODE ECHOCARDIOGRAM Name: CORETTA ENNIS Room #: 459-P [facility] IN M.R.#: [id number] Admission: 06/06/21 Attend Phys: Suzanne Ruiz MD Discharge: Date of : 65 Report #: [id number] Mitral Valve The mitral valve is normal in structure. Trace mitral regurgitation. No evidence of mitral valve stenosis. Tricuspid Valve The tricuspid valve is normal in structure. There is trace tricuspid regurgitation. Estimated PAP 23 mmHg. There is no pulmonary hypertension. Pulmonic Valve The pulmonary valve is normal in structure. There is no pulmonic valvular regurgitation. Great Vessels The aortic root is normal in size. IVC is normal in size and collapses >50% with inspiration. Pericardium There is no pericardial effusion. <Conclusion> Normal left ventricle size with mild to moderate concentric hypertrophy Ejection fraction 55-60% Grade 1 diastolic dysfunction Normal right ventricular size/function Normal atrial size Normal aortic/mitral valve structure and function Trace tricuspid valve insufficiency Pulmonary systolic pressure estimated 23 mmHg No pericardial effusion Normal aortic root size Color flow/bubble study was performed Very small ASD or possibly PFO detected/[id number] shunt <ELECTRONICALLY SIGNED> By: Jaden Rayo MD, FACC 06/10/21 1536 [id number] Jaden Rayo MD, FACC /INF
[2021-06-10 20:05] VITALS: BP 145/88
[2021-06-10 20:06] LABS: SYPHILIS AB Non Reactive (Non Reactive)
--- NOTE | 2021-06-10 20:11 | NUR ---
Assumed pt care this am vs stable, diet and medications tolerated well partial relief is noted. Medications given as per emar, was off the unit for opthalmology visit as ordered by my accompanied by GRAPHIC USER INTERFACE DESIGNER. Awaiting dc orders since pt has been accepted to [address] [place] [address] , endorsed to the night nurse.
[2021-06-10] MEDS ORDERED: CEFDINIR300 MG PO (21:28)
[2021-06-10] MEDS ORDERED: MELATONIN5 M1 PO (21:30)
[2021-06-10] MEDS ORDERED: HUMALOG100 UNIT/1 SUBQ (21:30)
[2021-06-10] MEDS ORDERED: LANTUS SUBQ (21:30)
[2021-06-10 22:19] VITALS: BP 122/78
--- NOTE | 2021-06-10 22:57 | NUR ---
PT LEFT THE UNIT AT 2255 ON A BED TO 509 IN A STABLE CONITIONS. ALL BELONGINGS WERE GIVEN TO PT.
== END 2021-06-10 23:02 | DRG 149 ==
LOC: ER 15:53 → 4W 17:53 → EROBS 17:53 → 4W 18:15
PROVIDERS: Emergency Medicine; Hospitalist; Psychiatry & Neurology Neuromuscular Medicine; Specialist; ADMIT Internal Medicine; ATTEND Internal Medicine
DX: R42 Dizziness and giddiness (principal); N17.9 Acute kidney failure, unspecified; K21.9 Gastro-esophageal reflux disease without esophagitis; F32.9 Major depressive disorder, single episode, unspecified; E11.65 Type 2 diabetes mellitus with hyperglycemia; R26.89 Other abnormalities of gait and mobility; E11.319 Type 2 diabetes mellitus with unspecified diabetic retinopathy without macular edema; K02.9 Dental caries, unspecified; Z20.822 Contact with and (suspected) exposure to COVID-19; F19.10 Other psychoactive substance abuse, uncomplicated; F17.210 Nicotine dependence, cigarettes, uncomplicated; R62.7 Adult failure to thrive; Z68.23 Body mass index [BMI] 23.0-23.9, adult; Z88.2 Allergy status to sulfonamides; Z88.8 Allergy status to other drugs, medicaments and biological substances
CPT/HCPCS: 10045

== ENCOUNTER 2021-06-10 15:05 | Inpatient (IN) | payer OTHER ==
[~2021-06-10] VITALS: Ht 157.5 cm; Wt 62.4 kg
--- NOTE | ~2021-06-10 | PLAN ---
[facility] [place] [address] REHAB UNIT PLAN OF CARE Name: CORETTA ENNIS Room #: 509-P ADM IN M.R.#: [id number] Admission: 06/10/21 Attend Phys: Luis Mari MD Discharge: Date of : 65 Report #: [id number] THIS REPORT FOR: cc: Bernardino Pierre,Bernardino Diggs,Luis Ramachandran MD ~ DATE OF SERVICE: 06/12/2021 PROGRESS NOTE/OVERALL PLAN OF CARE HISTORY OF PRESENT ILLNESS: The patient was seen back in followup. She was seen earlier. She was in no distress. Last recorded temperature 36.3, pulse 82, respirations 16, blood pressure 131/80. She is alert and oriented. She is on oral antibiotics. No focal complaints of pain. Pleasant, cooperative. She has very poor dentition. Functionally, she is transferring with contact guard with gait, mod assist 200 feet with a front-wheeled walker. She started to work on stairs. Upper body dressing, supervision; with lower body dressing, min assist. In speech therapy, she has functional comprehension with mild to moderate cognitive deficits and moderate memory deficits. ASSESSMENT: A 55-year-old female with the following problem list: 1. Dizziness with gait instability and a high fall risk. 2. Diabetic retinopathy. 3. Uncontrolled diabetes mellitus type 2 with an elevated hemoglobin A1c. 4. Human immunodeficiency virus. 5. Tobacco abuse and polysubstance abuse. PLAN: The overall plan of care is based on the pre-admit screen and information garnered from therapy assessments. 1. Estimated length of stay is probably around 10 days. 2. Medical prognosis reasonably good. 3. Anticipated interventions include the interdisciplinary acute inpatient rehabilitation program. 4. Anticipated functional outcomes would be for the patient to become modified independent with transfers, mobility and ADLs and to improve as far as overall cognition, so she can return back to the home setting. 5. Discharge destination would be back to the home setting where she lives with her significant other. He is status post a cerebrovascular accident. 6. Expected therapy by discipline includes PT, OT and speech 1 hour per day each 5 days a week throughout the duration of the acute inpatient rehabilitation stay. We may be able to decrease the speech therapy some to increase the PT and OT. ADDENDUM: The patient's prognosis for significant practical improvement within a reasonable period of time appears good. Given the patient's complex medical condition and risk of further medical complication, rehabilitation services [address] [address] REHAB UNIT PLAN OF CARE Name: CORETTA ENNIS Room #: 509-P [facility] IN .R.#: [id number] Admission: 06/10/21 Attend Phys: Luis Mari MD Discharge: Date of : 65 Report #: [id number] could not be safely provided at the lower level of care such as a nursing home facility. By: [id number] Luis Mari MD /nt
[~2021-06-10 15:05] MED LIST changes: +AMITRIPTYLINE H25 M2 PO
[2021-06-10] MEDS ORDERED: CEFDINIR300 MG PO (21:28)
[2021-06-10] MEDS ORDERED: HUMALOG100 UNIT/1 SUBQ (21:30)
[2021-06-10] MEDS ORDERED: LANTUS SUBQ (21:30)
[2021-06-10] MEDS ORDERED: MELATONIN5 M1 PO (21:30)
[2021-06-10 22:57] VITALS: BP 123/70
--- NOTE | 2021-06-11 02:08 | NUR ---
pt arrived to unit approx 2300 evening 06/10. pt came up in bed. pt weighed on standing scale and pt up to bsc to void with 1 assist tonight. pt alert and oriented x4, calm and cooperative. pt c/o pain to lower back and sometimes head pain behind her eyes. pt also c/o intermittent nausea. med orders came in late and pt fell asleep before meds were verified therefore held for now. pt appears to be sleeping soundly. bed alarm on and call light in reach. will continue to monitor.
[2021-06-11 07:15] VITALS: BP 138/78
--- NOTE | 2021-06-11 07:30 | NUR ---
Chart review, New to acute rehab last night. Dx sig gait instability, dizziness. She resting. Prior to hospital, she lives with her sig other nicholas # [phone]. They live in house, 1 step to enter and 5 stair to the basement where the laundry room is. No dme. Manage own medication. PCP Heide Pierre. seth martinez following if needed for hh nurse only r/t medicaid, has no therapy coverage outpt or hh through her medicaid. Will cont following as needed for dc needs.
--- NOTE | 2021-06-11 12:40 | NUR ---
Nutrition: pt transferred to rehab unit. Acute admit with hyperglycemia, vision changes possibly related to hyperglycemia. Needs opthamology consult. Pt reports improved vision during visit and is eating 75-100% of meals. Prior question of weight loss however this is not seen. UBW reported as 125#. Was 122# on acute and is 137# now today per standing scale. May require placement due to limited ability to care for self, was unable to give insulin due to vision changes. Glucerna shakes ordered BID on acute. Will continue per pt request but decrease to once daily due to improved intake and continued hyperglycemia. A1C 13.3. BG 183-355. Follow for appropriateness/need for diet review. Physician documented malnutrition-defer dx. Place as low risk.
[2021-06-11 13:12] LABS: HEMATOCRIT 39.5 % (37.0-47.0); HEMOGLOBIN 13.3 gm/dL (12.0-15.0); MCH 33.7 pg (26.0-34.0); MCHC 33.7 g/dL (28.0-37.0); RBC 3.94 mil/uL (4.20-5.00); RDW 14.5 % (10.5-14.5)
[2021-06-11 13:29] LABS: CALCIUM 8.9 mg/dL (8.5-10.1); CREATININE 1.1 mg/dL (0.6-1.0); POTASSIUM 5.2 mmol/L (3.5-5.1)
--- NOTE | 2021-06-11 15:04 | NUR ---
S.C. CONSULT WAS COMPLETED BY THIS HOSPITAL TRAY SERVICE WORKER TODAY.
--- NOTE | 2021-06-11 17:55 | NUR ---
I have reviewed the documentation by SHAHAB ESTRADA from 06/11/21 to 06/11/21 and I concur with it. WALESKA RODRIGUEZ
[2021-06-11 19:45] VITALS: BP 155/94
--- NOTE | 2021-06-12 01:55 | NUR ---
assumed care approx 1900 evening 06/11. pt alert and oriented x4, pleasant and cooperative. pt requested several snacks at hs and given. pt took hs meds with water tolerating well. pt appears to be sleeping soundly. bed alarm on and call light in reach. will continue to monitor.
--- NOTE | 2021-06-12 07:48 | NUR ---
ASSUMED CARE AT 0700. PATIENT IS ALERT AND ORIENTEDX4. PATIENT APPIAH'S, MARKET SPECIALIST ARE EQUAL. LUNGS ARE CLEAR AND DEMINISHED. ABD IS SOFT WITH BSX4. PATIENT IS UP WITH ONE WITH GAIT BELT AND WALKER. CONTINUES ON PO ABT. S.L. IS IN HER LEFT ARM. FALL AND SAFETY PROTOCOLS IN PLACE. DENIES PAIN AT THIS TIME. CONTINUES TO PROGRESS SLOWLY TOWARDS D/C GOALS. PT/OT/ST EVALS TO BE DONE TODAY. WILL CONTINUE TO MONITER.
[2021-06-12 08:00] VITALS: BP 131/80
[2021-06-12 18:54] VITALS: BP 144/85
--- NOTE | 2021-06-13 02:43 | NUR ---
Assumed pt care at 1900. A/OX4,VSS.No c/o pain, N/V so far this shift. Up with AX1 RW/GB to BSC. Pt blood sugar at HS 69,treated with apple juice snack and up to 93,HS lantus held Mariann SEED CUTTER notified no new orders given. Fall precautions in place,calls approp for help. resting quietly at this time,will continue to monitor pt.
[2021-06-13 10:19] VITALS: BP 141/85
--- NOTE | 2021-06-13 14:05 | NUR ---
Assumed care for pt at shift change, A/O x 4, looks comfortable, no c/o pain, assessment done and charted, VSS, meds given as ordered, gluc covered, other labs reviewed, no new concerns, good appetite, safety precaution maintained, Pt was able to go to the bathroom, SBA+BD, using FWW, satisfactory I/O's, hourly round, worked with PT. POC to be cont'd.
[2021-06-13 20:30] VITALS: BP 143/89
--- NOTE | 2021-06-14 02:27 | NUR ---
ASSUMED CARE OF PT AT 1915 ON 06/13/21. PT IS A&OX4. IS ON ROOM AIR. DENIES PAIN. IS STABLE. IS UP WITH STANDBY ASSIST, SAMANTHA, WALKER. FALL PRECAUTIONS & HOURLY ROUNDING CONTINUED THIS SHIFT. DENIES DIZZINESS AT THIS TIME. REPORTED BLURRED VISION. PROVIDER AWARE. PT CONTINUES ACCU CHECKS ACHS. REQUESTED MELATONIN FOR SLEEP. LABS & VITALS REVIEWED. PT SNACKS FREQUENTLY. PT IS SLEEPING. IS ABLE TO TURN SELF IN BED. IS CURRENTLY ASLEEP. CALL LIGHT WITHIN REACH. WILL CONTINUE TO MONITOR.
[2021-06-14 07:55] VITALS: BP 149/91
--- NOTE | 2021-06-14 11:17 | NUR ---
ASSUMED CARE FOR PT AT SHIFT CHANGE, A/O X 4 , ON ROOM AIR , LOOKS COMFORTBALE. BUT C/O CHRONIC HEADACHE ( 12/21), SLEPT WELL, ALL MEDS GIVEN PER SCHEDULED, Takes pills whole with water, VSS, AFEBRILE; PT WAS ABLE TO GO THE RESTROOM, USING FWW, GB, SBA, STILL UNSTEADY AND WEAK, GREAT APPETITE, ADEQUATE I/O'S, GOOD MOOD, LABS REVIEWED, GLYCEMIA BORDERLINE LOW, INSULINE DOSE WAS READJUSTED BY PROVIDER, ALL SAFETY PRECAUTION IN PLACE. CONT POC.
[2021-06-14 19:27] VITALS: BP 160/99
--- NOTE | 2021-06-15 01:21 | NUR ---
assumed care approx 1900 evening 06/14. pt alert and oriented x4, got up to go to the bathroom setting off alarm. reminded pt to call out for staff and not to get up on her own. pt verbalized understanding. pt given snacks per her request at hs. pt c/o some dizziness when getting up at hs. now back to bed and appears to be sleeping soundly. bed alarm on and call light in reach. will continue to monitor.
[2021-06-15 07:33] VITALS: BP 130/70
[2021-06-15 08:00] VITALS: BP 135/75
--- NOTE | 2021-06-15 11:43 | NUR ---
ASSUMED PT CARE AT SHIFT CHANGE, PT A/O X 4, NO OVERNIGHT ISSUE REPORTED, ASSESSMENT DONE AND CHARTED, LABS REVIEWED NO CONCERNS OTHER THEN BORDERLINE LOW BLOOD GLUCOSE, VSS, AFEBRILE, MEDS GIVEN , PT TAKES MEDS WHOLE WITH WATER, C/O USUAL CHRONIC HEADACHE, PRN ANALGESICS GIVEN, WORKED SUCCESSFULLY WITH OT/PT, PATIENT IS COMFORTABLE AND SAFE, ALL SAFETY MEASURES APLLIED. WILL CONT' MONMITORING FOR CHANGE.
--- NOTE | 2021-06-15 12:55 | NUR ---
team meeting, recommendation: fww 200 ft, loss balance mostly to the left side, vision impairment, low endurance for lower extremities . uses wt. cane at home. dc 06/18 Chanell Mary nurse only. possible will need fww vs cane.
--- NOTE | 2021-06-15 16:55 | NUR ---
I have reviewed the documentation by PAWAN ESTRADA from 06/14/21 to 06/15/21 and I concur with it. KERRI FORTE
[2021-06-15 19:12] VITALS: BP 150/84
--- NOTE | 2021-06-16 01:41 | NUR ---
ASSUMED CARE APPROX 1900 EVENING 06/15. PT ALERT AND ORIENTED X4, APPROPRIATE AND COOPERATIVE. PT WITH LOW BLOOD SUGAR OF 49 CLOSE TO HS AND GIVEN JUICE AND SNACKS. BS WENT UP TO 68, 95. LANTUS INSULIN HELD PER ORDER. PT UP TO BATHROOM WITH STANDBY ASSIST TOLERATING WELL. PT APPEARS TO BE SLEEPING SOUNDLY AT PRESENT. BED ALARM ON AND CALL LIGHT IN REACH. WILL CONTINUE TO MONITOR.
[2021-06-16 07:45] LABS: ABSOLUTE NEUTROPHILS 4.4 thou/uL (1.4-8.2); BASOPHILS 0.9 % (0.0-2.0); EOSINOPHILS 1.2 % (0.0-3.0); HEMATOCRIT 32.9 % (37.0-47.0); HEMOGLOBIN 10.7 gm/dL (12.0-15.0); LYMPHOCYTES 25.9 % (24.0-44.0); MCH 32.4 pg (26.0-34.0); MCHC 32.6 g/dL (28.0-37.0); MCV 99.6 fL (80.0-100.0); MONOCYTES 9.2 % (1.0-8.0); PLATELET COUNT 303 thou/uL (150-400); POLYS 62.8 % (36.0-66.0); RBC 3.31 mil/uL (4.20-5.00); RDW 14.6 % (10.5-14.5)
[2021-06-16 08:00] VITALS: BP 150/93
[2021-06-16 08:02] LABS: CALCIUM 8.4 mg/dL (8.5-10.1); MAGNESIUM 2.2 mg/dL (1.8-2.4); POTASSIUM 4.5 mmol/L (3.5-5.1)
--- NOTE | 2021-06-16 10:21 | NUR ---
ASSUMED CARE AT 0700. PATIENT IS ALERT AND ORIENTED X4. PATIENT APPIAH'S, SOFTWARE CONFIGURATION SPECIALIST ARE EQUAL. LUNGS ARE CLEAR AND DEMINISHD. ABD IS SOFT WITH BSX4. UP TO THE BAHTROOM TO VOID BRITNEY COLORED URINE. UP ON SIDE OF BED FOR BREAKFAST. FALL AND SAFETY PROTOCOLS IN PLACE. C/O H.A. PAIN, AND LOWER BACK PAIN. MEDICATED WITH PAIN PATCH, AND PRN PAIN MED. CONTINUES TO PROGRESS SLOWLY TOWARDS D/C GOALS. WILL CONTINUE TO MONITER. WILL CONTINUE TO MONITER.
[2021-06-16 19:59] VITALS: BP 152/88
--- NOTE | 2021-06-17 05:25 | NUR ---
ASSUMED CARE AT 1930 OF 06/16. PATIENT IS A&OX4, DENIES SHORTNESS OF BREATH. REPORTS A HEADACHE, WHICH IS BEING MANAGED WITH SCHEDULED TYLENOL. STANDBY ASSIST WITH TRANSFERS AND AMBULATION TO TOILET, USING GB AND WALKER. PATIENT HAS BEEN IMPULSIVE A COUPLE TIMES THIS SHIFT, SET OFF BED ALARM BY GETTING UP WITHOUT USING CALL LIGHT. PATIENT IS REEDUCATED PRESSURE CONTROLLER LIGHT USAGE AND FALL PRECAUTIONS. PATIENT VERBALIZES UNDERSTANDING AND HAS EXHIBITED APPROPRIATE CALL LIGHT USAGE. SUPERVISION ASSIST WITH ADLS AT HS. REQUESTED FOR MELATONIN SLEEP AID. CALL LIGHT WITHIN REACH, WILL CONTINUE TO MONITOR.
[2021-06-17 09:08] VITALS: BP 155/84
--- NOTE | 2021-06-17 10:58 | NUR ---
ASSUMED CARE AT 0700. PATIENT IS ALERT AND ORIENTED X4, BUT IS FORGETFUL. PATIENT IS ALSO IMPULSIVE AT TIMES. PATIENT LUNGS ARE CLEAR AND DEMINISHED. ABD IS SOFT WITH BSX4. LAXATIVES GIVEN. UP TO THE BATHROOM WITH GAIT BELT AND SBA. FALL AND SAFETY PROTOCOLS IN PLACE. C/O H.A. MEDICATED WITH SCED PAIN MED. NO IV ACCESS. PATIENT HAS MAGICMOUTHWASH SCED. CONTINUES TO PROGRESS TOWARDS D/C GOALS. WILL CONTINUE TO MONITER.
--- NOTE | 2021-06-17 17:28 | NUR ---
I have reviewed the documentation by SHAHAB ESTRADA from 06/17/21 TO 06/17/21 and I concur with it. WALESKA RODRIGUEZ
[2021-06-17 19:21] VITALS: BP 168/94
[2021-06-17 22:10] VITALS: BP 146/74
--- NOTE | 2021-06-18 04:41 | NUR ---
ASSUMED CARE AT 1900 OF 06/17. PATIENT IS A&OX4, FORGETFUL AT TIMES, REQUIRES CONSTANT REMINDER TO USE CALL LIGHT BEFORE TRANSFERING OR AMBUALTING. STAND BY ASSIST WITH GB TRANSFERS AND AMBULATION, NO C/O DIZZINESS DURING AMBULATION. AT HS PATIENT'S BP WAS ELEVATED, AFTER RECEIVING FIRST DOSE OF LISINOPRIL EARLIER IN THE DAY. TAX MANAGER PUBLIC PROVIDER NOTIFIED, ONE TIME ORDER OF 5MG OF PO LISINOPRIL ADMINISTERED AND BP DECREASED FROM 158/96 TO 146/74. WILL CONTINUE TO MONITOR. FALL PRECAUTIONS IN PLACE, CALL LIGHT WITHIN REACH.
[2021-06-18 07:41] VITALS: BP 146/74
--- NOTE | 2021-06-18 07:43 | NUR ---
Dc home today with [facility] home health nursing only. Scout will pick her up after lunch today. Recommendation for fww or amayae, mary lou dalton. to decline use of walker or cane.
[2021-06-18 08:00] VITALS: BP 156/83
[2021-06-18] MEDS ORDERED: MECLIZINE HCL25 MG PO (08:53)
[2021-06-18] MEDS ORDERED: LANTUS SUBQ (08:53)
[2021-06-18] MEDS ORDERED: BENAZEPRIL HCL5 MG PO (08:53)
[2021-06-18] MEDS ORDERED: HUMALOG100 UNIT/1 SUBQ (08:53)
[2021-06-18] MEDS ORDERED: ZOFRAN4 MG PO (08:54)
[2021-06-18 10:21] VITALS: BP 156/83
[2021-06-18 10:36] VITALS: BP 146/74; BP 156/83
[2021-06-18 11:50] VITALS: BP 146/74
--- NOTE | 2021-06-18 12:41 | NUR ---
Patient care resummed, patient located in room lying supine watching T.V. Patient denies C/O of dizziness with ambulation. Patient does state having a lower back pain and oral pain from her teeth. Patient recieved 500mg of Acetaminophen for pain which partically releaved her pain. Patient VSS, although blood pressure noted to be hypertensive. Patient presents to LINE MANAGER forgetful, but smiling, and laughing with staff. Patient does need a constant reminder to use her call light when getting up from the bed. Patient being discharged this afternoon. Lung sounds are clear and unlabored, abdomen is soft with active bowel sounds. Fall preventions are in place for this patient, will continue to monitior.
--- NOTE | 2021-06-21 07:04 | HC ---
[facility] [place] [address] CONSULTATION Name: CORETTA ENNIS Room #: 509-P [facility] IN M.R.#: [id number] Admission: 06/10/21 Attend Phys: Luis Mari MD Discharge: 06/18/21 Date of : 65 Report #: [id number] THIS REPORT FOR: cc: Bernardino Pierre Craig DO Deutch,Az Reyna PhD ~ DATE OF SERVICE: 06/13/2021 NEUROBEHAVIORAL STATUS EXAMINATION ATTENDING PHYSICIAN: Luis Mari M.D. AUDITOR TAX: Az Zuniga, PhD CLINICAL PRESENTATION: The patient is a 55-year-old female admitted to the rehabilitation unit for a comprehensive inpatient rehabilitation program to improve functional mobility, activities of daily living and self-care secondary to deficits associated with visual disturbance and dizziness. Her assessment on admission to the rehabilitation unit was dizziness with gait instability with a high fall risk, diabetic retinopathy, uncontrolled type 2 diabetes mellitus with an Hb1 of 13.3, HIV, and tobacco abuse/polysubstance abuse. Prior to this most recent admission, she was reported to have been living at home with a significant other. She reports having had a fall prior to her admission. Problems with frequent falling is reported. The patient is a high school graduate with 1 year of college. 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 She has 4 children. She reported having discontinued driving last year because of vision. TECHNIQUES UTILIZED: Clinical interview, review of medical records, staff consultation and behavioral observation, mini mental status exam 2 standard version, clock drawing, and verbal fluency assessment (letter and category). EXAMINATION FINDINGS: The patient was alert and cooperative with the assessment. There is no evidence of aphasia. Her thoughts are logical and goal oriented. There is no evidence of thought disorder. She does not report auditory or visual hallucinations. She describes her symptoms to include anxiety, depression, sleep disturbance and tiredness and fatigue. She reports that she was independent with managing her basic activities of daily living, but needed help with instrumental activities of daily living. Social support is reported as poor. Performance on the MMSE 2 brief version is within normal limits with a raw score 14 and 16. She was 4/[address] and 2/3 for immediate recall of 3 items after a brief time delay and distraction. [address] [address] CONSULTATION Name: CORETTA ENNIS Room #: 509-P [facility] IN M.R.#: [id number] Admission: 06/10/21 Attend Phys: Luis Mari MD Discharge: 06/18/21 Date of : 65 Report #: [id number] Her performance on the MMSE 2 standard version is within normal limits with a raw score of 27/30. She was 5/5 for serial sevens, 2/2 for naming, 1/1 for repetition, 3/3 for auditory comprehension. She could read and follow a single command and write a sentence. The patient was unable to accurately copy a simple geometric design. Clock drawing is within normal limits. Letter fluency was in the low average range with a T-score of 37 and percentile rank at 10. Brief category fluency was at T-score of 39, which is at the 14th percentile and low average. The patient is presenting with increased anxiety and mild deficits in cognition. 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 Unspecified anxiety disorder with depressed mood. RECOMMENDATIONS: The patient will benefit from continued assistance in the development of compensatory strategies for variability in cognitive functioning. Consider outpatient psychological counseling to help with adjustment and treatment of the anxiety and depression. Thank you very much for allowing me to provide a neuropsychological testing on this patient. <ELECTRONICALLY SIGNED> By: Az Zuniga, PhD 06/21/21 0704 1630 2142 Az Zuniga, PhD /nt
== END 2021-06-18 12:35 | disposition home health service (06) | DRG 92 ==
PROVIDERS: Nurse Practitioner; Nurse Practitioner Family; ADMIT Physical Medicine & Rehabilitation; ATTEND Physical Medicine & Rehabilitation
DX: R26.89 Other abnormalities of gait and mobility (principal); N17.9 Acute kidney failure, unspecified; E11.319 Type 2 diabetes mellitus with unspecified diabetic retinopathy without macular edema; E11.65 Type 2 diabetes mellitus with hyperglycemia; F19.10 Other psychoactive substance abuse, uncomplicated; G31.84 Mild cognitive impairment of uncertain or unknown etiology; F41.9 Anxiety disorder, unspecified; F32.A Depression, unspecified; Z66 Do not resuscitate; F17.210 Nicotine dependence, cigarettes, uncomplicated; E11.649 Type 2 diabetes mellitus with hypoglycemia without coma; Z23 Encounter for immunization; Z71.6 Tobacco abuse counseling
CPT/HCPCS: 10112

== ENCOUNTER 2021-07-01 04:41 | Inpatient (IN) | payer OTHER ==
[~2021-07-01] VITALS: Ht 157.5 cm; Wt 62.5 kg
[~2021-07-01 04:41] MED LIST changes: +BENAZEPRIL HCL5 MG PO; +CEFDINIR300 MG PO; +MECLIZINE HCL25 MG PO
[2021-07-01 04:43] VITALS: BP 141/80
[2021-07-01 05:48] LABS: BE(vivo) -12.9 mmol/L (-2 to +3); HCO3 10.8 mmol/L (22.0-26.0); PCO2 21.1 mmHg (35.0-45.0); PO2 105.3 mmHg (80.0-100.0); pH 7.328 (7.360-7.450); sO2 97.6 % (92.0-98.0)
[2021-07-01 06:05] LABS: HEMATOCRIT 41.9 % (37.0-47.0); HEMOGLOBIN 13.2 gm/dL (12.0-15.0); MCH 32.5 pg (26.0-34.0); MCHC 31.5 g/dL (28.0-37.0); MCV 103.3 fL (80.0-100.0); PLATELET COUNT 377 thou/uL (150-400); RBC 4.06 mil/uL (4.20-5.00); RDW 14.4 % (10.5-14.5); WBC 22.6 thou/uL (4.0-11.0)
[2021-07-01 06:22] LABS: ALBUMIN 3.8 g/dL (3.4-5.0); CALCIUM 9.5 mg/dL (8.5-10.1); CREATININE 2.9 mg/dL (0.6-1.0); POTASSIUM 4.8 mmol/L (3.5-5.1); TOTAL BILIRUBIN 0.9 mg/dL (0.2-1.0)
[2021-07-01 06:42] LABS: URINE BILIRUBIN NEGATIVE (Negative); URINE BLOOD NEGATIVE (Negative); URINE CLARITY CLEAR; URINE COLOR YELLOW; URINE GLUCOSE-RANDOM* 3+ (Negative); URINE KETONES 3+ (Negative); URINE LEUKOCYTES-REFLEX NEGATIVE (Negative); URINE NITRITE-REFLEX NEGATIVE (Negative); URINE PROTEIN (DIPSTICK) 1+ (Negative); URINE SPECIFIC GRAVITY 1.025 (1.005-1.035); URINE UROBILINOGEN 0.2 E.U./dl (0.2-1.0)
[2021-07-01 06:48] LABS: AMP/METHAMP Negative (Negative); BARBITURATES Negative (Negative); BENZODIAZEPINES Negative (Negative); COCAINE POSITIVE (Negative); METHADONE Negative (Negative); OPIATES Negative (Negative); PCP Negative (Negative)
[2021-07-01 07:04] LABS: HYALINE CASTS 0-3 Few /LPF (None Seen); SQUAMOUS 0-3 Few /LPF (0-3)
[2021-07-01 07:05] LABS: BACTERIA-REFLEX 1-9 Few /HPF (None Seen); CRYSTALS None Seen /LPF (None Seen); URINE RBC None Seen /HPF (NONE SEEN); URINE WBC-REFLEX 0-5 Rare /HPF (0-5)
--- NOTE | 2021-07-01 07:08 | EKG ---
[address] [place] [address] ELECTROCARDIOGRAM REPORT Name: CORETTA ENNIS Room #: 170-9 ADM IN M.R.#: [id number] Admission: 07/01/21 Attend Phys: Ayo Marcus MD Discharge: Date of : 65 Report #: [id number] [facility] ED Test Date: 2021-07-01 Test Time: 06:39:29 Pat Name: CORETTA ENNIS Department: Room: 170 Gender: F Transfer Clerk: JOLANTA GANDARA : 1965 Requested By: Marjorie Jimenez Order Number: [id number] MD: Jaden Rayo Measurements Intervals [place] Rate: 93 P: 60 VT: 172 QRS: -56 QRSD: 92 T: 84 QT: 425 QTc: 529 Interpretive Statements Sinus rhythm Probable left atrial enlargement Abnormal R-wave progression, late transition LVH with secondary repolarization abnormality Inferior infarct, old Compared to ECG 06/06/2021 15:56:32 Left ventricular hypertrophy now present Early repolarization now present ST (T wave) deviation no longer present Myocardial infarct finding still present Electronically Signed On 07-01-2021 7:08:21 KEYMODULE ASSEMBLY MACHINE TENDER by Jaden Rayo [email or web address] <ELECTRONICALLY SIGNED> By: Jaden Rayo MD, FACC 07/01/21707 8 Jaden Rayo MD, FAC /EPI
[2021-07-01 07:14] LABS: ANISOCYTOSIS 1+; MACROCYTES 1+; PLATELET ESTIMATE NORMAL; POIKILOCYTOSIS 1+
[2021-07-01 07:15] LABS: SCHISTOCYTES 1+
[2021-07-01 08:23] LABS: ALBUMIN 3.1 g/dL (3.4-5.0); CALCIUM 8.3 mg/dL (8.5-10.1); CREATININE 2.6 mg/dL (0.6-1.0); MAGNESIUM 2.1 mg/dL (1.8-2.4); PHOSPHORUS 7.1 mg/dL (2.6-4.7); POTASSIUM 3.9 mmol/L (3.5-5.1)
--- NOTE | 2021-07-01 12:49 | NUR ---
VAT CONSULTED FOR PICC PLACEMENT. ATTEMPTED RIGHT BRACHIAL PICC, WITHOUT SUCCESS. ABLE TO CANNULATE VESSEL, BUT WIRE WOULD NOT THREAD. PT LEFT UPPER ARM VESSELS VERY SMALL. RIGHT IJ CVL PLACED, USING BARD 5FR TL PICC. TRIMMED 20CM/5CM EXTERNAL. TIP LOCATION VERIFIED WITH 3CG AND RELEASED FOR USE, PER HOSPITAL VASCULAR ACCESS POLICY.
--- NOTE | 2021-07-01 14:03 | NUR ---
Case opened to follow for support and dc planning. Pt is known to cm from recent dc home on 06/18/21 from [facility] acute [facility]. She readmitted with DKA and told the ER she ran out of her medication. Pt is sleeping this afternoon and remains in the ER awaiting a bed in ICU. Nuclear Medicine Chief Technologist spoke with the pt's pharmacy, [facility] [phone], and they indicate they have a deliever service for her and all her meds are individually bubble packed. They have called her on 06/22 and 06/25 and left message for her to confirm with them so they can deliever new scripts from 06/18 dc and from her pcp Dr. Pierre on 06/22. She did not answer and has not called them back. Nursing to help pt call them this afternoon so they can setup delievery. The pt will need to call them on the day of dc as well to confirm reciept and delievery of any new scripts. They are closed on the weekend but she would be able to go to any [facility] on Sat/Sun and they can pull any script she needs filled as well. She has good ins coverage. She lives with her boyfriend and has a complex psychosocial history. She was up ad jaye at de but therapy did recommend a cane or walker for saftey and the pt declined both at de. She may benefit from another PT eval prior to dc. She was setup with [facility] at [facility];however she was never admitted as they called her boyfriend and her number multiple times with no response.
[2021-07-01 16:41] LABS: CALCIUM 7.2 mg/dL (8.5-10.1); CREATININE 2.1 mg/dL (0.6-1.0); POTASSIUM 3.7 mmol/L (3.5-5.1)
--- NOTE | 2021-07-01 21:29 | NUR ---
RETURNED FAMILY MEMBER CALL FOR AN UPDATE. PERMISSION RECEIVED FROM PT TO SHARE INFORMATION. NO ANSWER, LEFT VM TO CALL BACK IF STILL INTERESTED IN AN UPDATE.
[2021-07-01 23:17] LABS: CALCIUM 7.9 mg/dL (8.5-10.1); CREATININE 1.7 mg/dL (0.6-1.0); POTASSIUM 3.8 mmol/L (3.5-5.1)
[2021-07-01 23:21] LABS: ALBUMIN 2.8 g/dL (3.4-5.0); MAGNESIUM 1.7 mg/dL (1.8-2.4); PHOSPHORUS 2.5 mg/dL (2.5-4.9)
[2021-07-02 04:55] LABS: HEMATOCRIT 28.7 % (37.0-47.0); MCH 32.8 pg (26.0-34.0); MCHC 32.7 g/dL (28.0-37.0); MCV 100.3 fL (80.0-100.0); RBC 2.86 mil/uL (4.20-5.00); WBC 26.3 thou/uL (4.0-11.0)
[2021-07-02 04:56] LABS: HEMOGLOBIN 9.4 gm/dL (12.0-15.0); PLATELET COUNT 269 thou/uL (150-400)
[2021-07-02 05:02] LABS: ALBUMIN 2.6 g/dL (3.4-5.0); CALCIUM 7.8 mg/dL (8.5-10.1); CREATININE 1.5 mg/dL (0.6-1.0); MAGNESIUM 2.5 mg/dL (1.8-2.4); PHOSPHORUS 2.5 mg/dL (2.5-4.9); POTASSIUM 3.6 mmol/L (3.5-5.1)
[2021-07-02 05:48] LABS: ABSOLUTE NEUTROPHILS 23.9 thou/uL (1.4-8.2)
--- NOTE | 2021-07-02 07:01 | NUR ---
HOSPITALIST NOTIFIED ABOUT WBC'S TRENDING UPWARD AND MEETING SEPSIS CRITERIA. AWAITING FURTHER DIRECTION. ONCOMING PRATEEK RN NOTIFIED WELL.
[2021-07-02 11:10] VITALS: BP 153/80
[2021-07-02 13:28] VITALS: BP 153/80
[2021-07-02 13:48] VITALS: BP 157/77
[2021-07-02 14:25] VITALS: BP 157/79
--- NOTE | 2021-07-02 15:51 | NUR ---
PT IS ALERT AND ORIENTED X4. WHEN ORIGINALLY ASKING PT WHO SHE WAS, SHE STATED THAT SHE WAS "DENISE TOSCANO." PT HAD ONLY KNOWN WHERE SHE WAS AT. WHEN ENTERING THE ROOM AGAIN AND ASKING THE QUESTIONS AGAIN, SHE WAS ABLE TO ANSWER ALL QUESTIONS APPROPRIATELY. PT STATED THAT SHE GOT CONFUSED BECAUSE SHE WAS THINKING ABOUT HER SON AND HOW SHE MISSED HIM. PT STATED SHE DID NOT HAVE HER MEDICATION LIST ON HER. PT REQUESTS TO BE A FULL CODE. SPOKE WITH DR. MCCORMICK AND RECEIVED NEW ORDERS. TL CENTRAL LINE IN RIGHT IJ INTACT WITH FLUIDS CURRENTLY INFUSING. SKIN INTACT. WILL CONTINUE TO MONITOR.
[2021-07-02 15:56] LABS: HEMATOCRIT 27.5 % (37.0-47.0); HEMOGLOBIN 8.7 gm/dL (12.0-15.0); MCH 31.8 pg (26.0-34.0); MCHC 31.8 g/dL (28.0-37.0); MCV 100.1 fL (80.0-100.0); PLATELET COUNT 266 thou/uL (150-400); RBC 2.75 mil/uL (4.20-5.00); WBC 22.5 thou/uL (4.0-11.0)
[2021-07-02 16:10] LABS: ALBUMIN 2.5 g/dL (3.4-5.0); CALCIUM 7.9 mg/dL (8.5-10.1); CREATININE 1.2 mg/dL (0.6-1.0); MAGNESIUM 2.4 mg/dL (1.8-2.4); POTASSIUM 3.2 mmol/L (3.5-5.1); TOTAL BILIRUBIN 0.4 mg/dL (0.2-1.0); TOTAL PROTEIN 5.4 g/dL (6.4-8.2)
[2021-07-02] MEDS ORDERED: METOPROLOL SUCC50 MG PO (16:33)
[2021-07-02] MEDS ORDERED: METFORMIN HCL500 M3 PO (16:34)
[2021-07-02 17:33] LABS: ABSOLUTE NEUTROPHILS 20.3 thou/uL (1.4-8.2)
[2021-07-02 19:56] VITALS: BP 172/90
[2021-07-03 00:25] VITALS: BP 156/88
[2021-07-03 01:07] LABS: GLYCOHEMOGLOBIN (HGB A1C) 12.5 % (4.8-5.6)
[2021-07-03 04:31] VITALS: BP 152/87
[2021-07-03 05:00] LABS: ABSOLUTE NEUTROPHILS 10.9 thou/uL (1.4-8.2); BASOPHILS 0.3 % (0.0-2.0); EOSINOPHILS 0.2 % (0.0-3.0); HEMATOCRIT 22.6 % (37.0-47.0); HEMOGLOBIN 7.3 gm/dL (12.0-15.0); LYMPHOCYTES 13.2 % (24.0-44.0); MCH 32.6 pg (26.0-34.0); MCHC 32.4 g/dL (28.0-37.0); MCV 100.7 fL (80.0-100.0); MONOCYTES 5.5 % (1.0-8.0); PLATELET COUNT 204 thou/uL (150-400); POLYS 80.8 % (36.0-66.0); RBC 2.24 mil/uL (4.20-5.00); RDW 14.3 % (10.5-14.5); WBC 13.5 thou/uL (4.0-11.0)
[2021-07-03 05:01] LABS: ALBUMIN 2.1 g/dL (3.4-5.0); CALCIUM 7.2 mg/dL (8.5-10.1); CREATININE 0.8 mg/dL (0.6-1.0); TOTAL BILIRUBIN 0.3 mg/dL (0.2-1.0); TOTAL PROTEIN 4.7 g/dL (6.4-8.2)
--- NOTE | 2021-07-03 05:36 | NUR ---
ASSESSMENTS CHARTED. MEDS CHARTED GIVEN. C/O ABDOMINAL PAIN AND NAUSEA. PATIENT STATED THAT THE PROCHLORPERAZOLE WORKED BETTER THAN THE OTHER NAUSEA MEDS. PATIENT RESTING IN BED DURING SHIFT.
[2021-07-03 08:00] VITALS: BP 147/87
[2021-07-03 11:40] VITALS: BP 165/74
[2021-07-03 15:15] VITALS: BP 150/73
[2021-07-03 19:39] VITALS: BP 175/80
[2021-07-04 00:06] VITALS: BP 110/50
[2021-07-04 04:45] VITALS: BP 113/54
[2021-07-04 05:57] LABS: HEMATOCRIT 24.6 % (37.0-47.0); HEMOGLOBIN 8.1 gm/dL (12.0-15.0); MCH 32.9 pg (26.0-34.0); MCHC 32.8 g/dL (28.0-37.0); MCV 100.2 fL (80.0-100.0); RBC 2.45 mil/uL (4.20-5.00); RDW 13.9 % (10.5-14.5); WBC 9.3 thou/uL (4.0-11.0)
[2021-07-04 06:15] LABS: CALCIUM 7.6 mg/dL (8.5-10.1); CREATININE 0.7 mg/dL (0.6-1.0); POTASSIUM 3.5 mmol/L (3.5-5.1)
[2021-07-04 08:41] VITALS: BP 143/79
--- NOTE | 2021-07-04 10:22 | NUR ---
Assumed care of pt this AM. Pt is A&O x4, on RA, SR on the monitor. Pt c/o nausea this AM, PRN medications given. Pt reports that it "hurts when I swallow". Falcon patent & draining yellow urine. Long acting insulin held d/t low glucose. Will continue to monitor pt needs throughout day.
[2021-07-04 12:18] VITALS: BP 126/63
[2021-07-04 16:50] VITALS: BP 170/87
[2021-07-04 20:11] VITALS: BP 102/62
--- NOTE | 2021-07-05 01:25 | NUR ---
UPON SHIFT ASSESSMENT, PT AOX3, TO PERSON, PLACE, AND TIME, FORGETFUL OF SITUATION. PT REPORTS 10/10 PAIN IN NECK/THROAT SORE AND TENDER, WORSE WITH SWALLOWING. PT RECEIVING PRN PO NORCO Q4HR. PT REPORTS INTERMITTENT SOB AT REST WHILE ON ROOOM AIR, NO DESATURATIONS NOTED, REFUSING APPLICATION OF O2. PT TOLERATING PO INTAKE OF FLUIDS AND SOFT/FIBER RESTRICTED DIET WITHOUT ISSUE. PT WITH INTERMITTENT NAUSEA WITHOUT EMESIS. PT RECEIVING SCHEDULED REGLAN TID, PRN IV ZOFRAN Q6HR AND PRN IV COMPAZINE Q6HR. PT VOIDING PER CATHETER, PATENT, SECUREMENT DEVICE IN PLACE, LIGHT YELLOW URINE NOTED. PT RESTING IN BED THROUGHOUT SHIFT, FREQUENT REPOSITIONING ENCOUARAGED. PT NOTED TO SHIFT INDEPENDENTLY. PT REPORTS NUMBNESS AND TINGLING IN B0TH FEET. CAPILLARY REFILL LESS THAN 3SEC, PERIPHERAL PULSES PALPABLE IN ALL EXTREMITIES. PT ENCOURAGED TO NOTIFY STAFF FOR ALL NEEDS, CALL LIGHT WITHIN REACH, BED ALARM ON, BED LOCKED IN LOWEST POSITION, FREQUENT MONITORING WILL CONTINUE.
[2021-07-05 04:02] VITALS: BP 141/82
[2021-07-05 07:38] VITALS: BP 143/83
--- NOTE | 2021-07-05 07:41 | EKG ---
[address] [address] ELECTROCARDIOGRAM REPORT Name: CORETTA ENNIS Room #: 213-P ADM IN M.R.#: [id number] Admission: 07/01/21 Attend Phys: Ayo Marcus MD Discharge: Date of : 65 Report #: [id number] [facility] Test Date: 2021-07-04 Test Time: 17:59:03 Pat Name: CORETTA ENNIS Department: Room: 213 P Gender: F Hand Method Lasting Machine Operator: MAGNOLIA : 1965 Requested By: Ayo Marcus Order Number: [id number] MD: Jaden Rayo Measurements Intervals [place] Rate: 103 P: 46 NE: 164 QRS: -30 QRSD: 81 T: 108 QT: 344 QTc: 451 Interpretive Statements Sinus tachycardia Inferior infarct, old Anteroseptal infarct, old Lateral leads are also involved Compared to ECG 07/01/2021 06:39:29 Sinus rhythm no longer present Left ventricular hypertrophy no longer present Early repolarization no longer present Myocardial infarct finding still present Electronically Signed On 07-05-2021 7:40:34 MOMD TEACHER by Jaden Rayo [email or web address] <ELECTRONICALLY SIGNED> By: Jaden Rayo MD, FACC 07/05/21 0740 1759 1759 Jaden Rayo MD, FAC /EPI
[2021-07-05 11:29] VITALS: BP 151/91
[2021-07-05 16:13] VITALS: BP 179/85
[2021-07-05 19:29] VITALS: BP 144/63
[2021-07-06 03:48] VITALS: BP 145/74
--- NOTE | 2021-07-06 04:46 | NUR ---
RECEIVED PATIENT AT 1900H.ASSESSMENT CHRTED.MEDICATIONS PER OCT.KEPT PATIEN TNPO FROM MIDNIGHT.WAS ABLE TO URINATE AFTER CATHTER HAS BEEN REMOVED.ALL NEEDS ATTENDED.TO CONTINOUSLY MONITOR.
[2021-07-06 07:30] VITALS: BP 158/72
--- NOTE | 2021-07-06 09:12 | NUR ---
Assess due to length of stay. Admit with DKA. Hx HIV, DMI and has recently been discharged from this facility last month. Noncompliance with healthcare team recommendations and poor diabetes control. A1C 12.5. DNR status. Has been eating fair, complains swallow difficulty-GI consulted and pending EGD today. Wt up 15 lb from pt's reported wt of 122 lb. Likes to drink glucerna shakes in past so will order once EGD completed. Resume carb control diet. Available if pt has any dietary questions. Low nutrition risk
[2021-07-06 11:07] VITALS: BP 172/92
[2021-07-06 12:00] VITALS: BP 158/72
[2021-07-06 16:00] VITALS: BP 163/75
--- NOTE | 2021-07-06 16:05 | NUR ---
patient wants [facility] [place]. She also would like a cane at [place].
[2021-07-06 19:23] VITALS: BP 95/60
[2021-07-07 04:35] VITALS: BP 141/67
--- NOTE | 2021-07-07 05:26 | NUR ---
PATIENTS CARES WHERE ASSUMED AT SHIFT CHANGE. PATIENT WAS ASSESSED AND MEDS WHERE PASSED. PATIENT REQUESTED A BOX MEAL BEFORE BED, PATIENT DENIES ANY PAIN OR NAUSED. PATIENT ONLY C/O A SORE THROAT. ROUNDS WHER DONE. THE BED IS IN A LOW AND LOCKED POSITION
[2021-07-07 05:49] LABS: HEMATOCRIT 23.2 % (37.0-47.0); HEMOGLOBIN 7.7 gm/dL (12.0-15.0); MCH 33.7 pg (26.0-34.0); MCHC 33.2 g/dL (28.0-37.0); MCV 101.5 fL (80.0-100.0); RBC 2.29 mil/uL (4.20-5.00); RDW 14.2 % (10.5-14.5); WBC 9.3 thou/uL (4.0-11.0)
[2021-07-07 06:35] LABS: CREATININE 0.8 mg/dL (0.6-1.0); POTASSIUM 3.8 mmol/L (3.5-5.1)
[2021-07-07 07:56] VITALS: BP 154/83
[2021-07-07] MEDS ORDERED: LANTUS SUBQ (11:15)
[2021-07-07] MEDS ORDERED: PROTONIX40 M2 PO (11:16)
[2021-07-07] MEDS ORDERED: HUMALOG100 UNIT/1 SUBQ (11:16)
[2021-07-07] MEDS ORDERED: CARAFATE 11 GM/10 M1 PO (11:17)
[2021-07-07 11:49] VITALS: BP 158/72
--- NOTE | 2021-07-07 12:40 | NUR ---
Assumed care of pt this AM. Pt is A&O x4, SR on the monitor, on RA. Denies any chest pain. Pt not reporting any other pain at this time. Plan to discharge today.
--- NOTE | 2021-07-07 14:52 | P ---
[facility] [place] [address] PROCEDURE REPORT Name: CORETTA ENNIS Room #: 213-P [facility] IN ..#: [id number] Admission: 07/01/21 Attend Phys: Ayo Marcus MD Discharge: 07/07/21 Date of : 65 Report #: [id number] THIS REPORT FOR: cc: Bernardino Pierre,Severo Valencia MD ~ cc: Ayo Marcus MD DATE OF SERVICE: 07/06/2021 PROCEDURE PERFORMED: Upper endoscopy with biopsies. HISTORY OF PRESENT ILLNESS: The patient is a 55-year-old female with multiple medical problems including significant diabetes, history of HIV. She has been taking her HIV medications. She has not been taking her medicines for diabetes. Her blood sugar on admission was 863. She has been having dysphagia with both solids and liquids as well as odynophagia. She has had nausea, but with no emesis. She has a history of gastroesophageal reflux disease, takes omeprazole on a daily basis. Last upper endoscopy many years ago. Plan is for upper endoscopy for further evaluation. DESCRIPTION OF PROCEDURE: The risks and benefits of the procedure were explained to the patient, those risks including but not limited to bleeding, perforation and the risk of sedation. She understood these risks and gave informed consent. Sedation was given using propofol per anesthesia. Next, using a standard Olympus upper endoscope, the scope was placed in the patient's mouth and advanced under direct vision through the esophagus, stomach and into the second portion of the duodenum. The larynx was normal in appearance. The very proximal esophagus was normal; however, in the mid and distal esophagus, severe grade D erosive esophagitis with multiple ulcerations were seen. The tissue was very friable. I did proceed with obtaining biopsies to rule out the possibility of HSV and CMV. Overall, the gastric mucosa was normal. The pylorus was normal and patent. The duodenal bulb, first and second portion were normal. At this point, I did not proceed with a dilation due to his severe esophagitis. The scope was then withdrawn and the procedure terminated. The patient tolerated the procedure well. IMPRESSION: 1. Severe grade D erosive esophagitis. 2. Otherwise, normal upper endoscopy. RECOMMENDATIONS: 1. Await biopsy results. 2. We will switch from q. day to b.i.d. PPI therapy. 3. We will add liquid Carafate q.a.c. and at bedtime. 4. We will start with full liquid diet at this time. [address] [address] PROCEDURE REPORT Name: CORETTA ENNIS Room #: 213-P [facility] IN M.R.#: [id number] Admission: 07/01/21 Attend Phys: Ayo Marcus MD Discharge: 07/07/21 Date of : 65 Report #: [id number] Thank you for allowing me to participate in her care. <ELECTRONICALLY SIGNED> By: Severo Alvarez MD 07/07/21 1452 1457 Severo Alvarez MD /nt
--- NOTE | 2021-07-07 16:15 | NUR ---
Patient discharged with HH with Chanell. Patient issued a cane from [employer] for $14 dollars. Gave patient number for pharmacy. Rn called number and they request patient call when she returns home. No further needs
--- NOTE | 2021-07-10 08:09 | PATH ---
[facility] [place] [address] PATHOLOGY RPT PROCEDURE Name: ANNAMARIA HINKLE Room #: 213-P DIS IN M.R.#: [id number] Admission: 07/01/21 Date of : 65 Discharge: 07/07/21 Report #: [id number] Path Case #: [id number] [facility] Accession Number: [id number] . 01 Material submitted: . esophagus - ESOPHAGEAL BIOPSY R/O CMV, HERPES . 01 Clinical history: . EGD DKA . 01 Diagnosis: Esophagus, "esophageal biopsy": - Acute ulcerative esophagitis. See comment. LBQ 07/09/2021 1159 Local . 01 Comment: CMV and HSV1 and HSV2 are all negative on block A1 . Most of the tissue submitted is ulcerated with a minute fragment of squamous epithelium. No obvious goblet cell metaplasia or dysplasia is seen. . The GMS stain for fungus is also negative. (JENNY/db; 07/09/2021) . 01 Electronically signed: . Ángel Gutierres MD, Pathologist NPI- [id number] . 01 Gross description: . The specimen is received in formalin, labeled "Annamaria Hinkle, esophageal bx R/O herpes", however the requisition additionally designates the specimen as "esophageal BX R/O CMV, herpes". The specimen consists of multiple morfin irregular tissues aggregating 0.8 x 0.7 x 0.1 cm which are filtered and submitted in toto in A1.(NOOKSACK; 07/07/2021) DKA/DKA 07/07/2021 1105 Local . 01 Pathologist provided ICD-10: K20.90, K22.10 . 01 CPT . 339389, 797914, Z62704, V29777 Performed at: [address], [place] [id number] MD Ángel Gutierres MD Phone: [phone]
== END 2021-07-07 14:23 | disposition home or self-care (01) | DRG 637 ==
LOC: ER 04:41 → 2N 06:51 → EROBS 06:51 → 2N 07-02 14:15
PROVIDERS: Emergency Medicine; Nurse Practitioner; Nurse Practitioner Family; ADMIT Hospitalist; ATTEND Hospitalist
PROC: 0DB68ZX Excision of Stomach, Via Natural or Artificial Opening Endoscopic, Diagnostic (ICD-10-PCS; principal; 2021-07-07)
DX: E11.10 Type 2 diabetes mellitus with ketoacidosis without coma (principal); G93.41 Metabolic encephalopathy; N17.9 Acute kidney failure, unspecified; K21.00 Gastro-esophageal reflux disease with esophagitis, without bleeding; Z20.822 Contact with and (suspected) exposure to COVID-19
CPT/HCPCS: 10081; 62110; 62900; 70005

== ENCOUNTER 2021-08-21 18:16 | Inpatient (IN) | payer OTHER ==
[~2021-08-21] VITALS: Ht 157.5 cm; Wt 55.8 kg
[2021-08-21 18:16] VITALS: BP 150/85
[~2021-08-21 18:16] MED LIST changes: +CARAFATE 11 GM/10 M1 PO; +METFORMIN HCL500 M3 PO; +METOPROLOL SUCC50 MG PO
[2021-08-21 19:10] LABS: ABSOLUTE NEUTROPHILS 8.8 thou/uL (1.4-8.2); BASOPHILS 0.5 % (0.0-2.0); EOSINOPHILS 0.5 % (0.0-3.0); HEMATOCRIT 33.4 % (37.0-47.0); HEMOGLOBIN 10.7 gm/dL (12.0-15.0); LYMPHOCYTES 11.5 % (24.0-44.0); MCH 28.6 pg (26.0-34.0); MCV 89.6 fL (80.0-100.0); MONOCYTES 7.7 % (1.0-8.0); PLATELET COUNT 402 thou/uL (150-400); POLYS 79.8 % (36.0-66.0); RBC 3.72 mil/uL (4.20-5.00); RDW 17.4 % (10.5-14.5)
[2021-08-21 19:27] LABS: URINE BILIRUBIN NEGATIVE (Negative); URINE BLOOD 2+ (Negative); URINE CLARITY SL CLOUDY; URINE COLOR YELLOW; URINE GLUCOSE-RANDOM* 3+ (Negative); URINE KETONES 2+ (Negative); URINE LEUKOCYTES-REFLEX TRACE (Negative); URINE NITRITE-REFLEX NEGATIVE (Negative); URINE PROTEIN (DIPSTICK) 1+ (Negative); URINE SPECIFIC GRAVITY 1.015 (1.005-1.035); URINE UROBILINOGEN 0.2 E.U./dl (0.2-1.0)
[2021-08-21 19:42] LABS: BACTERIA-REFLEX >30 Many /HPF (None Seen); CASTS None Seen /LPF (None Seen); SQUAMOUS 0-3 Few /LPF (0-3)
[2021-08-21 19:43] LABS: CRYSTALS None Seen /LPF (None Seen); URINE RBC 3-10 Few /HPF (NONE SEEN); URINE WBC-REFLEX >25 Many /HPF (0-5)
[2021-08-21 20:10] LABS: AMP/METHAMP Negative (Negative); BARBITURATES Negative (Negative); BENZODIAZEPINES Negative (Negative); COCAINE POSITIVE (Negative); METHADONE Negative (Negative); OPIATES Negative (Negative); PCP Negative (Negative)
[2021-08-21 20:16] LABS: CALCIUM 8.9 mg/dL (8.5-10.1); CREATININE 1.1 mg/dL (0.6-1.0); POTASSIUM 4.9 mmol/L (3.5-5.1)
[2021-08-21 20:21] LABS: ALBUMIN 3.1 g/dL (3.4-5.0); TOTAL BILIRUBIN 0.4 mg/dL (0.2-1.0)
[2021-08-22 06:13] LABS: HEMATOCRIT 30.3 % (37.0-47.0); HEMOGLOBIN 9.7 gm/dL (12.0-15.0); MCH 29.2 pg (26.0-34.0); MCHC 31.9 g/dL (28.0-37.0); MCV 91.6 fL (80.0-100.0); RBC 3.3 mil/uL (4.20-5.00); RDW 17.3 % (10.5-14.5); WBC 10.2 thou/uL (4.0-11.0)
[2021-08-22 06:45] LABS: ALBUMIN 2.7 g/dL (3.4-5.0); CALCIUM 8.1 mg/dL (8.5-10.1); CREATININE 0.9 mg/dL (0.6-1.0); POTASSIUM 4.2 mmol/L (3.5-5.1); TOTAL BILIRUBIN 0.2 mg/dL (0.2-1.0); TOTAL PROTEIN 6.4 g/dL (6.4-8.2)
[2021-08-22 09:56] VITALS: BP 160/92
[2021-08-22 18:24] VITALS: BP 147/84
[2021-08-22 21:09] VITALS: BP 152/86
[2021-08-23 03:05] LABS: GLYCOHEMOGLOBIN (HGB A1C) 12.5 % (4.8-5.6)
--- NOTE | 2021-08-23 07:38 | EKG ---
[address] [address] ELECTROCARDIOGRAM REPORT Name: CORETTA ENNIS Room #: 170-6 ADM IN M.R.#: [id number] Admission: 08/21/21 Attend Phys: Ricky Wheeler MD Discharge: Date of : 65 Report #: [id number] [facility] ED Test Date: 2021-08-21 Test Time: 20:45:09 Pat Name: CORETTA ENNIS Department: Room: 170 Gender: F Shell Mold Bonder: CHELSY : 1965 Requested By: Kevin Brantley Order Number: [id number] MD: Jaden Rayo Measurements Intervals [place] Rate: 97 P: 34 MI: 179 QRS: -43 QRSD: 91 T: 48 QT: 355 QTc: 451 Interpretive Statements Sinus rhythm Left atrial enlargement Left ventricular hypertrophy Inferior infarct, old Anterior infarct, old Compared to ECG 07/04/2021 17:59:03 Atrial abnormality now present Left ventricular hypertrophy now present Sinus tachycardia no longer present Myocardial infarct finding still present Electronically Signed On 08-23-2021 7:38:18 CREDIT OR LOANS OFFICER by Jaden Rayo [email or web address] <ELECTRONICALLY SIGNED> By: Jaden Rayo MD, FACC 08/23/21 0738 44 44 Jaden Rayo MD, [facility] /EPI
[2021-08-23 12:11] VITALS: BP 141/73
[2021-08-23] MEDS ORDERED: REGLAN 5 MG TAB5 MG PO (13:10)
[2021-08-23] MEDS ORDERED: ZOFRAN 4 MG ORAL4 MG PO (13:10)
[2021-08-23] MEDS ORDERED: LISINOPRIL10 MG PO (13:10)
[2021-08-23] MEDS ORDERED: CEFDINIR300 MG PO (16:30)
--- NOTE | 2021-08-23 16:59 | NUR ---
PT ADITTED RELATED TO COVID, UTI,HIV, HYPERGLYCEMIA. PT FAMILIAR TO CM FROM PREVIOUS ADMISSIONS. PT RESIDES IN A HOUSE WITH HER SIG OTHER. PT HAX HX OF SUBSTANCE ABUSE. PT HAS BEEN PROVIDED RESOURCES FOR SESATION MULTIPLE TIMES. PT HAD BEEN ISSUES A CANE FOR USE UPON DC IN JUNE AND HAD BEEN ON SERVICES WITH [facility]. CM CALLED [facility] AND THEY INDICATED THEY ARE OON WITH PT'S HEALTHY BLUE PLAN AND CAN'T ACCEPT BACK. CM FAXED REFERRAL TO [facility] FOR REVIEW FOR POSSIBLE ADMISSION. THEY ARE REVIEWING. CM CALLED PT[facility]S [facility] WHO SHE HAS DELIVERY SERVICES THROUGH AND THEY INDICATED THEY SHIPPED PT'S MEDS OUT 08/19/21. THEY HAD RECIEVED THE 4 NEW SCRIPTS FROM [place] ELECTRONICALLY AND WILL FILL AND CONTACT PT TOMORROW TO ARRANGE DELIVER OF THOSE MEDS. CM HAD SPOKEN WITH [employer] INSULATION INSTALLER AND SHE INDICATED THAT IF [facility] ISN'T ABLE TO ACCEPT THE CM IS TO REACH OUT TO [facility] TO HAVE USE PAY FOR A MONTH OF HH VISITS. CM NOTIFIED PT'S NURSE. PT IS TO DC HOME THIS DAY WITH EITHER [facility] TO CONTACT HE TO ARRANGE ASSESSMENT VISIT OR [facility]. CM TO PROVIDE CAB VOUCHER FOR TRANSPORT HOME.
[2021-08-23 17:06] VITALS: BP 141/73
[2021-08-23 17:07] VITALS: BP 141/73
[2021-08-23 17:08] VITALS: BP 141/73
[2021-08-23] MEDS ORDERED: BIKTARVY 50-201 EACH PO (20:06)
[2021-08-23 20:56] VITALS: BP 146/78
--- NOTE | 2021-08-24 23:02 | HC ---
[facility] [address] CONSULTATION Name: CORETTA ENNIS Room #: 170-6 [facility] IN M.R.#: [id number] Admission: 08/21/21 Attend Phys: Poppy Medrano MD Discharge: 08/23/21 Date of : 65 Report #: [id number] THIS REPORT FOR: cc: Bernardino Pierre,Bernardino Yip,Grant Grant MD ~ DATE OF SERVICE: 08/23/2021 INFECTIOUS DISEASE CONSULTATION REASON FOR CONSULTATION: I was asked to evaluate concerning COVID-19 infection in the setting of HIV and diabetes. HISTORY OF PRESENT ILLNESS: The patient is a 55-year-old known from her previous hospitalization end of May where she had vertigo. She is HIV positive, on biktarvy. She has underlying diabetes and presents now with poor control of this with blood sugars over 500. On her screening testing, she was positive for COVID-19. She has remained off oxygen with stable oxygen saturation above 95%. She does have polysubstance abuse and has been doing cocaine over the last week. She also has PTSD, which has been fairly stable. She ran out of insulin 5 days prior to her admission, which was on 08/21/2021. Subsequently, her blood sugars have been under good control. She did receive corticosteroids. I have not seen that she received any treatment; however, for her COVID-19 infection. She also states that she has been on biktarvy until the past five days. Her chest x-ray did show right lower lobe infiltrate, but this has been present since 07/02/2021 film. She has had no nausea, vomiting or diarrhea. She also has had some dysuria. Her urinalysis was positive for pyuria and bacteriuria, although growth was low colony count of mixed patricia. A CT scan of the abdomen and pelvis did show thickening of the bladder wall with no upper tract findings. ALLERGIES: SULFA. MEDICATIONS: As noted on her MAR, which were reviewed. PAST MEDICAL HISTORY: HIV infection, diabetes, PTSD, depression, polysubstance abuse with crack cocaine, gastroesophageal reflux. FAMILY HISTORY: Noncontributory. SOCIAL HISTORY: She is a smoker of cigarettes and uses cocaine. Denies alcohol use. REVIEW OF SYSTEMS: A 14-point negative other than what has been described above. [address] [address] CONSULTATION Name: CORETTA ENNIS Room #: 170-6 [facility] IN M.R.#: [id number] Admission: 08/21/21 Attend Phys: Poppy Medrano MD Discharge: 08/23/21 Date of : 65 Report #: [id number] PHYSICAL EXAMINATION: GENERAL: Afebrile and hemodynamically stable. SKIN: Without rash or decubitus. She was very thin. She had purple-dyed hair. No palpable adenopathy. HEENT: Eyes without scleral icterus. Dentition in poor repair with dental caries. NECK: Supple. LUNGS: Clear. HEART: Regular, without murmur, gallop or rub. ABDOMEN: Soft, tenderness in the lower abdomen without mass or hepatosplenomegaly. No CVA tenderness. EXTREMITIES: With no clubbing, cyanosis or edema. NEUROLOGIC: Cranial nerves intact and strength in the upper and lower extremities was symmetric. Spine was nontender. LABORATORY DATA: Reviewed. MICROBIOLOGY: Cultures, reviewed. IMAGING: Chest x-ray, CT scan of the abdomen and pelvis reviewed. IMPRESSION: A 55-year-old with COVID-19 infection. No oxygen requirements and her O2 saturations have been within normal limits. Chest x-ray showed a similar appearing interstitial opacities within the right lower lobe, which were nonspecific and unchanged from 07/02/2021. 1. Urinary tract infection with no specific organism identified. 2. Hyponatremia. 3. Diabetes, poorly controlled. 4. HIV infection, on Biktarvy. 5. Polysubstance abuse with cocaine. 6. Gastroesophageal reflux. 7. Anemia. 8. Post-traumatic stress disorder. RECOMMENDATION: 1. We treat COVID infection in an immunocompromised patient with HIV and diabetes with either a 3-day course of remdesivir, 5-day course of Paxlovid or monoclonal antibody infusion to COVID spike protein. 2. Treat UTI with cefdinir 300 mg p.o. b.i.d. for 7 days. 3. Continue Biktarvy. 4. Control diabetes. 5. Workup for her anemia and it has been noted since June of this past year. [address] [address] CONSULTATION Name: CORETTA ENNIS Room #: 170-6 DIS IN M.R.#: [id number] Admission: 08/21/21 Attend Phys: Poppy Medrano MD Discharge: 08/23/21 Date of : 65 Report #: [id number] We will discuss further with attending. <ELECTRONICALLY SIGNED> By: Grant Ruiz MD 08/24/21 2302 1510 1957 Grant Ruiz MD /nt
== END 2021-08-23 20:56 | disposition home or self-care (01) | DRG 871 ==
LOC: ER 18:16 → EROBS 22:18
PROVIDERS: Emergency Medicine; Nurse Practitioner Family; ADMIT Hospitalist; ATTEND Hospitalist
DX: A41.9 Sepsis, unspecified organism (principal); U07.1 COVID-19; J12.82 Pneumonia due to coronavirus disease 2019; N30.01 Acute cystitis with hematuria; E87.1 Hypo-osmolality and hyponatremia; N17.9 Acute kidney failure, unspecified; K21.9 Gastro-esophageal reflux disease without esophagitis; E11.319 Type 2 diabetes mellitus with unspecified diabetic retinopathy without macular edema; F32.9 Major depressive disorder, single episode, unspecified; F14.10 Cocaine abuse, uncomplicated; F43.10 Post-traumatic stress disorder, unspecified; E11.65 Type 2 diabetes mellitus with hyperglycemia; D64.89 Other specified anemias; Z88.2 Allergy status to sulfonamides; Z88.8 Allergy status to other drugs, medicaments and biological substances; Z91.19 Patient's noncompliance with other medical treatment and regimen

== ENCOUNTER 2021-09-16 02:05 | Inpatient (IN) | payer OTHER ==
[2021-09-16] VITALS (23 sets, daily range): BP systolic 119–164; BP diastolic 61–96
[~2021-09-16] VITALS: Ht 157.5 cm; Wt 51.7 kg
--- NOTE | ~2021-09-16 | EMS ---
[place] [address] EMS Patient Care Report Name: CORETTA ENNIS Room #: 439-P ADM IN M.R.#: [id number] Admission: 09/16/21 Attend Phys: Ayo Marcus MD Discharge: Date of : 65 Report #: [id number] THIS REPORT FOR: //name// Report Transmitted: 09/17/2021 22:00 EMS Care Summary [place], [place]/[facility] Incident [id number] @ 09/16/2021 01:15 Incident [address] [place] [address] Patient OCRETTA ENNIS Female, 56 Years 1965 Patient Address [address] [place] [address] Patient History Type 2 Diabetes, Patient Allergies Bactrim, Patient Medications None Reported, Chief Complaint Hyperglycemia Disposition Transported No Lights/[place] Dispatch Reason Diabetic Problem Transported To [facility] Narrative Called for sick. Upon arrival, pt was awake and talking lying on her bed c/o not feeling well, weak, N/V, diarrhea and dehydration. Pt states she has felt this way for a couple of days. She was moved to the EMS cot and loaded into the ambulance w/o incident. Vitals obtained. 12 Lead. Attempted IV's x 3[place] [address] EMS Patient Care Report Name: CORETTA ENNIS Room #: 439-P ADM IN ..#: [id number] Admission: 09/16/21 Attend Phys: Ayo Marcus MD Discharge: Date of : 65 Report #: [id number] Vitals repeated. D-stick read HI. En route: no significant changes. RR to the ER. Arrived: pt taken to ER #1 and moved to their bed w/o incident. Pt care & report to ER staff. Initial Vitals @01:52P: 113, @01:37P: 114,GCS: 15,MA Suspected: false @01:30P: 123,R: 20,BP: 112/64,Pain: 0/10,GCS: 15,Glucose: -2,Revised Trauma: 12, @01:40P: 113,R: 18,BP: 105/60,Pain: 0/10,GCS: 15,Revised Trauma: 12, Assessments @01:52MENTAL:Event Oriented,Person Oriented,Place Oriented,Time Oriented,SKIN:Cold,Other,HEENT:Eyes: Left Pupil: 3-mm,Eyes: Right Pupil: 3-mm,Neck/Airway: No Abnormalities,LUNG SOUNDS:General: Vomiting,General: Diarrhea,General: Nausea,ABDOMEN:General: Vomiting,General: Diarrhea,General: Nausea,PELVIS//GI:EXTREMITIES:Left Arm: No Abnormalities,Right Arm: No Abnormalities,Left Leg: No Abnormalities,Right Leg: No Abnormalities,PULSE:Radial: 1+ Thready,NEURO:No Abnormalities, Impression Diabetic Hyperglycemia Procedures @01:32 IV Therapy - Saline Lock cc (20 ga) Site: Antecubital-Left Response: UnchangedFailed @01:22 ALS Assessment Response: UnchangedSucceeded @01:28 Stretcher Response: Unchanged @01:37 12-Lead ECG Response: UnchangedSucceeded @01:40 IV Therapy - Saline Lock cc (22 ga) Site: Hand-Left Response: UnchangedFailed @01:34 3-Lead ECG Response: UnchangedSucceeded @01:43 IV Therapy - Saline Lock cc (20 ga) Site: Forearm-Left Response: UnchangedFailed Timeline 01:12,Call Received 01:12,Dispatch Notified 01:15,Dispatched 01:17,En Route 01:21,On Scene 01:22,At Patient 01:22,ALS Assessment,Response: UnchangedSucceeded, 01:28,Stretcher,Response: Unchanged 01:30,BP: 112/64 M,PULSE: 123,RR: 20 R,SPO2: Ox,ETCO2: ,BG: -2,PAIN: 0,GCS: 15, [place] [address] EMS Patient Care Report Name: CORETTA ENNIS Room #: 439-P [facility] IN M.R.#: [id number] Admission: 09/16/21 Attend Phys: Ayo Marcus MD Discharge: Date of : 65 Report #: [id number] 01:32,IV Therapy - Saline Lock cc 20 ga Site: Antecubital-Left,Response: UnchangedFailed, 01:34,3-Lead ECG,Response: UnchangedSucceeded, 01:37,12-Lead ECG,Response: UnchangedSucceeded, 01:37,BP: / M,PULSE: 114,RR: R,SPO2: Ox,ETCO2: ,BG: ,PAIN: ,GCS: 15, 01:40,BP: 105/60 M,PULSE: 113,RR: 18 R,SPO2: Ox,ETCO2: ,BG: ,PAIN: 0,GCS: 15, 01:40,IV Therapy - Saline Lock cc 22 ga Site: Hand-Left,Response: UnchangedFailed, 01:43,IV Therapy - Saline Lock cc 20 ga Site: Forearm-Left,Response: UnchangedFailed, 01:46,Depart Scene 01:52,BP: / M,PULSE: 113,RR: R,SPO2: Ox,ETCO2: ,BG: ,PAIN: ,GCS: , 02:10,At Destination 02:18,Call Closed Disclaimer v1.1 Copyright 2021 [employer] This EMS Care Summary contains data elements from the applicable legal record (which may be displayed differently). It is designed to provide pertinent information for the following purposes: continuity of care, clinical quality, and state data reporting. The complete legal record is available to ED staff and administrators of the receiving hospital in [employer]s Patient Tracker. All data is provided "as is."
[~2021-09-16 02:05] MED LIST changes: +LISINOPRIL10 MG PO; +ZOFRAN 4 MG ORAL4 MG PO
[2021-09-16 02:16] LABS: BE(vivo) -14.6 mmol/L (-2 to +3); HCO3 8.9 mmol/L (22.0-26.0); PCO2 16.7 mmHg (35.0-45.0); PO2 108.4 mmHg (80.0-100.0); pH 7.344 (7.360-7.450); sO2 97.9 % (92.0-98.0)
[2021-09-16 03:02] LABS: HEMATOCRIT 34.6 % (37.0-47.0); HEMOGLOBIN 9.7 gm/dL (12.0-15.0); MCHC 28.1 g/dL (28.0-37.0); MCV 95.9 fL (80.0-100.0); RBC 3.6 mil/uL (4.20-5.00); RDW 21.1 % (10.5-14.5)
[2021-09-16 03:14] LABS: INR 1.02; PROTIME 11.1 Seconds (10.5-12.1)
[2021-09-16 03:24] LABS: ALBUMIN 3.3 g/dL (3.4-5.0); BUN 54 mg/dL (7-18); CALCIUM 8.5 mg/dL (8.5-10.1); CHLORIDE 76 mmol/L (98-107); CREATININE 2.4 mg/dL (0.6-1.0); MAGNESIUM 2.7 mg/dL (1.8-2.4); PHOSPHORUS 7.9 mg/dL (2.6-4.7); SALICYLATE 13.7 mg/dL (2.8-20.0); SGOT 39 U/L (15-37); SGPT 13 U/L (14-59); SODIUM 120 mmol/L (136-145); TOTAL BILIRUBIN 0.9 mg/dL (0.2-1.0); TOTAL PROTEIN 7.1 g/dL (6.4-8.2)
[2021-09-16 03:30] LABS: ANION GAP 35 mmol/L (7-16)
[2021-09-16 03:31] LABS: CO2 9 mmol/L (21-32); GLUCOSE 1009 mg/dL (74-106); POTASSIUM 7.1 mmol/L (3.5-5.1)
[2021-09-16 03:35] LABS: URINE BILIRUBIN 1+ (Negative); URINE BLOOD NEGATIVE (Negative); URINE CLARITY CLEAR; URINE COLOR YELLOW; URINE GLUCOSE-RANDOM* 2+ (Negative); URINE KETONES 3+ (Negative); URINE LEUKOCYTES-REFLEX NEGATIVE (Negative); URINE NITRITE-REFLEX NEGATIVE (Negative); URINE PROTEIN (DIPSTICK) NEGATIVE (Negative); URINE UROBILINOGEN 0.2 E.U./dl (0.2-1.0)
[2021-09-16 03:50] LABS: AMP/METHAMP Negative (Negative); BARBITURATES Negative (Negative); BENZODIAZEPINES Negative (Negative); COCAINE POSITIVE (Negative); METHADONE Negative (Negative); OPIATES Negative (Negative); PCP Negative (Negative)
--- NOTE | 2021-09-16 06:21 | NUR ---
This RN admitted at 0535 to room 240. DKA protocol started, fluids and insulin gtt infusing. Limitied admission history documented due to patient not cooperating. Patient drowsy and barely answering questions. Insisting on water and to leave her alone.
[2021-09-16 06:42] LABS: ALBUMIN 2.5 g/dL (3.4-5.0); CALCIUM 7.4 mg/dL (8.5-10.1); CREATININE 2.3 mg/dL (0.6-1.0); PHOSPHORUS 4.8 mg/dL (2.5-4.9)
--- NOTE | 2021-09-16 08:00 | EKG ---
[place] [address] [address] [facility] [place] [address] ELECTROCARDIOGRAM REPORT Name: CORETTA ENNIS Room #: 240-P ADM IN M.R.#: [id number] Admission: 09/16/21 Attend Phys: Akil Linda MD Discharge: Date of : 65 Report #: [id number] [facility] ED Test Date: 2021-09-16 Test Time: 02:14:35 Pat Name: CORETTA ENNIS Department: Room: 240 Gender: F Chef Saucier: amina : 1965 Requested By: Leighton Saldivar Order Number: [id number] MD: Jaden Rayo Measurements Intervals [place] Rate: 114 P: 71 MA: 147 QRS: -55 QRSD: 89 T: 53 QT: 358 QTc: 494 Interpretive Statements Sinus tachycardia Paired ventricular premature complexes Aberrant complex LAE, consider biatrial enlargement Left anterior fascicular block Abnormal R-wave progression, late transition Probable left ventricular hypertrophy Borderline prolonged QT interval Compared to ECG 08/21/2021 20:45:09 Ventricular premature complex(es) now present Electronically Signed On 09-16-2021 8:00:21 DANCE INSTRUCTOR by Jaden Rayo [email or web address] <ELECTRONICALLY SIGNED> By: Jaden Rayo MD, [facility] 09/16/2100 3 Jaden Rayo MD, [facility] /EPI
[2021-09-16 12:01] LABS: CALCIUM 7.9 mg/dL (8.5-10.1); CREATININE 2.2 mg/dL (0.6-1.0); POTASSIUM 3.6 mmol/L (3.5-5.1)
[2021-09-16 12:05] LABS: ALBUMIN 2.8 g/dL (3.4-5.0); PHOSPHORUS 2.2 mg/dL (2.5-4.9)
--- NOTE | 2021-09-16 14:32 | NUR ---
PT ADITTED RELATED TO DKA, SEPSIS, AND HYPERKALEMIA. CM REVIEWED CHART AND SPOKE WITH CARE TEAM. CM ATTEMTPED TO VISIT WITH PT AT BEDSIDE THIS AFTERNOON BUT WAS SLEEPING AND DIDN'T ROUSE TO CM CALLING HER NAME OR KNOCKING. CM ATTEMPTED PC TO HER SIG [employer] [facility] AND NUMBER SAYS NOT IN SERVICES. PT FAMILIAR TO CM FROM PREVIOUS ADMISSIONS. FROM REPORT OF SIG OTHER IN ED UPON ADMISSION HE NAD PT HAD BEEN EVICTED FRMO THE HOUSE THEY HAD BEEN STAYING AT AND ARE STAYING WITH FRIENDS. PT HAD BEEN LIVING IN A HOUSE WITH HER SIG OTHER. PT HAS HX OF SUBSTANCE ABUSE. PT HAS BEEN PROVIDED RESOURCES FOR SESATION MULTIPLE TIMES. PT HAD BEEN ISSUED A CANE FOR USE UPON DC IN JUNE AND HAD BEEN ON SERVICES WITH [facility]. ON LAST ADMISSION [facility] INDICATED THE ROXIE OON WITH PT'S HEALTHY BLUE PLAN AND REFERRAL HAD BEEN SENT TO [facility]. PT USES [facility] WHO SHE HAS DELIVERY SERVICES THROUGH. CM TO DETERMINE IF SHE HAD CONTACTED THEM TO GET HER MEDS SENT ELSEWHERE. PT IS ON IV VANC AND ZOSYN. PT ON INSULIN DRIP. NEOROLOGY CONSULTED. CM TO FOLLOW INDICATED WITH DC PLANNING.
[2021-09-16 15:47] LABS: HEMATOCRIT 23.7 % (37.0-47.0); MCH 27.7 pg (26.0-34.0); MCHC 32.7 g/dL (28.0-37.0); PLATELET COUNT 346 thou/uL (150-400); RBC 2.79 mil/uL (4.20-5.00); RDW 19.3 % (10.5-14.5); WBC 25.8 thou/uL (4.0-11.0)
[2021-09-16 15:50] LABS: HEMOGLOBIN 7.7 gm/dL (12.0-15.0); MCV 84.8 fL (80.0-100.0)
[2021-09-16 15:56] LABS: AMYLASE 39 U/L (25-115); LIPASE 28 U/L (73-393)
[2021-09-16 15:59] LABS: ALBUMIN 2.6 g/dL (3.4-5.0); CALCIUM 7.4 mg/dL (8.5-10.1); CREATININE 1.9 mg/dL (0.6-1.0); MAGNESIUM 1.6 mg/dL (1.8-2.4); PHOSPHORUS 1.7 mg/dL (2.5-4.9); POTASSIUM 3.1 mmol/L (3.5-5.1)
[2021-09-16 16:06] LABS: ABSOLUTE NEUTROPHILS 22.7 thou/uL (1.4-8.2); ANISOCYTOSIS 1+; PLATELET ESTIMATE NORMAL
--- NOTE | 2021-09-16 18:20 | NUR ---
RN SPOKE WITH PHARMACY ABOUT RESTARTING PT BIK[facility] HOME MEDICATION. WE DO NOT STOCK THAT MEDICATION AT [facility]. RN CALLED PARTNER ABOUT BRINGING IN HOME MEDICATION TO BE VERIFIED BY PHARMACY TO BE GIVEN TO PT. PARTNER UNABLE TO GET INTO HOUSE SO UNABLE TO GET MEDICATION. RN NOTIFIED PHARMACY AND PHARMACY WAS GOING TO LET DR KUNZ KNOW. PT WAS TAKEN TO CT SCAN FOR ABD/PELVIS. PT INSULIN GTT TURNED OFF AT 1800. LAST BS 116. CALCULATED ANION GAP 11 AND CALCULATED SODIUM 137. POTASSIUM 3.1, REPLACING VIA IV. RN WILL CONTINUE TO MONITOR AND FOLLOW PLAN OF CARE.
[2021-09-17] VITALS (15 sets, daily range): BP systolic 113–186; BP diastolic 51–102
[2021-09-17 00:35] LABS: HEMATOCRIT 22.4 % (37.0-47.0); HEMOGLOBIN 7.2 gm/dL (12.0-15.0); MCH 27.4 pg (26.0-34.0); MCHC 32.1 g/dL (28.0-37.0); MCV 85.4 fL (80.0-100.0); RBC 2.63 mil/uL (4.20-5.00); RDW 19.4 % (10.5-14.5)
[2021-09-17 00:48] LABS: ALBUMIN 2.4 g/dL (3.4-5.0); CALCIUM 7.6 mg/dL (8.5-10.1); CREATININE 1.5 mg/dL (0.6-1.0); MAGNESIUM 1.7 mg/dL (1.8-2.4); PHOSPHORUS 1.6 mg/dL (2.5-4.9)
[2021-09-17 00:51] LABS: POTASSIUM 4.5 mmol/L (3.5-5.1)
[2021-09-17 05:07] LABS: GLYCOHEMOGLOBIN (HGB A1C) 13.9 % (4.8-5.6)
--- NOTE | 2021-09-17 08:00 | NUR ---
NOTIFIED HOSPITALIST THAT PT AG IS CLOSED DKA PROTOCOL DC'D PER DR. MCCORMICK. PT WILL HAVE A EGD TODAY IF IT IS CLEAR SHE IS STABLE TO TRANSFER TO TELE STATUS. THIS PT IS PROGRESSING TOWARD THE POC EVIDENCED BY DKA RESOLVED.
--- NOTE | 2021-09-17 09:19 | HC ---
[facility] [place] [address] CONSULTATION Name: CORETTA ENNIS Room #: 240-P [facility] IN M.R.#: [id number] Admission: 09/16/21 Attend Phys: Ayo Marcus MD Discharge: Date of : 65 Report #: [id number] THIS REPORT FOR: cc: NO FAMILY PHYSICIAN or PCP NO FAMILY PHYSICIAN or PCP Akshat Dorado MD ~ DATE OF SERVICE: 09/16/2021 INFECTIOUS DISEASE CONSULTATION ATTENDING PHYSICIAN: Dr. Linda. REASON FOR EVALUATION: Sepsis, complicated by multiorgan dysfunction. The patient with known HIV disease, diabetes mellitus with evidence of hyperosmolar ketoacidosis. HISTORY OF PRESENT ILLNESS: Chart reviewed. The patient examined. This is a 56-year-old woman known to our service, has underlying HIV disease, also diabetes mellitus that has been uncontrolled, who apparently was evicted, is living a transient life, was able to get her medicines including her insulin for which she is dependent. She presented in extremis. She was found to have markedly abnormal labs including glucose of greater than 1000. Sodium artificially noted to be 120 with potassium 7.1. Creatinine elevated at 2.4, noted previously to have a normal creatinine back in 05/2021. Did have a positive screen for cocaine as well. Due to the severe nature of her illness, she was placed in the intensive care unit. She is minimally responsive at this point. She opens her eyes. She has complaints of being thirsty. Additional evaluation initiated in the Emergency Room noted ABGs, pH 7.344, pCO2 of 16.7, pO2 108.4 on room air. White count was markedly elevated at 31,000. Does have anemia, hemoglobin 9.7. Lactic acid was only 2.2. Urinalysis was not remarkable for significant inflammation. Coronavirus testing was negative. Procalcitonin 0.24. Chest x-ray, no acute process. She has not required supplemental oxygen to this point. She was empirically started on therapy with cefepime and vancomycin. Currently, is continued on the latter and not utilizing Zosyn. Blood cultures are pending. ALLERGIES: BACTRIM. CURRENT MEDICATIONS: Include vancomycin, alteplase, Zosyn, ipratropium, albuterol inhaler, pantoprazole, p.r.n. analgesics, antiemetics. PAST MEDICAL HISTORY: As described above, poorly controlled diabetes mellitus, apparently insulin requiring; HIV, last known CD4 count 510 in 06/2021; acid reflux; chronic anemia; PTSD. SOCIAL HISTORY: Smokes cigarettes, also illicit drug use. She was found to [address] [address] CONSULTATION Name: CORETTA ENNIS Room #: 240-P [facility] IN M.R.#: [id number] Admission: 09/16/21 Attend Phys: Ayo Marcus MD Discharge: Date of : 65 Report #: [id number] have a positive screen for cocaine. FAMILY HISTORY: Noncontributory. REVIEW OF SYSTEMS: Not reliably obtained. PHYSICAL EXAMINATION: GENERAL: She appears chronically ill and toxic appearing, moderate distress. VITAL SIGNS: Temperature 97.4, pulse 108, respirations 17, blood pressure 148/89. SKIN: Warm. No evident rashes. HEENT: Normocephalic. Extraocular muscles intact. She has very poor dentition at this point. NECK: Supple. LUNGS: Few scattered coarse breath sounds. HEART: Tachycardic, appears regular. I do not appreciate a murmur. ABDOMEN: Mildly distended, somewhat firm and mildly tender. GENITOURINARY AND RECTAL: Deferred. LABORATORY DATA: Most recent electrolytes, sodium 136, potassium 3.6, chloride 99, bicarbonate is 20, anion gap of 17, BUN and creatinine 48 and 2.2. Albumin 2.8. Estimated GFR of 23. Lactic acid most recently 1.2. Blood sugar on screening has been generally above 500, most recently at 342. Chest x-ray as described above, no acute process. CT of the head, no evidence of acute intracranial hemorrhage or acute process. Procalcitonin 0.24. Drug screen positive for cocaine. ASSESSMENT AND PLAN: Sepsis, complicated by multiorgan dysfunction with acute kidney injury, also encephalopathy, all above in the setting of underlying human immunodeficiency virus disease and substance abuse. We will continue broad-spectrum therapy with vancomycin and Zosyn. Apparently, there is some improvement overall in her DKA. Continue fluid resuscitation, insulin drip as required. We will do additional laboratory testing to further evaluate any other potential issues, not entirely clear as to if there is additional issue rather than the inability to take her insulin. We will check additional diagnostic testing. She remains quite tenuous at this point, critically ill. Monitor expectantly. Continue supportive care. <ELECTRONICALLY SIGNED> By: Akshat Dorado MD 09/17/21 0919 [id number] 31 Akshat Dorado MD /nt
--- NOTE | 2021-09-17 10:16 | 2DMMODE ---
[facility] [place] [address] 2 D/M-MODE ECHOCARDIOGRAM Name: CORETTA ENNIS Room #: 240-P ADM IN M.R.#: [id number] Admission: 09/16/21 Attend Phys: Ayo Marcus MD Discharge: Date of : 65 Report #: [id number] THIS REPORT FOR: cc: NO FAMILY PHYSICIAN or PCP NO FAMILY PHYSICIAN or PCP Mickey Perkins MD ~ APPROVED REPORT Study performed: 09/17/2021 08:03:11 EXAM: Comprehensive 2D, Doppler, and color-flow Echocardiogram Patient Location: Bedside Room #: 240 Status: routine BSA: 1.51 HR: 101 bpm BP: 157/80 mmHg Rhythm: Tachycardia Other Information Study Quality: Good Indications Diabetes Tachycardia 2D Dimensions RVDd: 26.56 mm IVSd: 14.23 (7-11mm) LVOT Diam: 20.21 (18-24mm) LVDd: 38.61 mm PWd: 11.35 (7-11mm) Ascending Ao: 29.68 (22-36mm) LVDs: 25.38 (25-40mm) Left Atrium: 32.13 (27-40mm) Aortic Root: 29.72 mm Volumes Left Atrial Volume (Systole) Single Plane 4CH: 30.04 mL Single Plane 2CH: 20.13 mL Biplane LA Volume: 27.00 mL LA ESV Index: 18.00 mL/m2 Aortic Valve AoV Peak Amandeep.: 2.08 m/s AO Peak Gr.: 17.32 mmHg AO Mean Gr.: 8.56 mmHg [facility] [address] [place] [address] 2 D/M-MODE ECHOCARDIOGRAM Name: CORETTA ENNIS Room #: 240-P [facility] IN ..#: [id number] Admission: 09/16/21 Attend Phys: Ayo Marcus MD Discharge: Date of : 65 Report #: [id number] AO V2 Mean: 1.33 m/s AO V2 VTI: 41.39 cm Mitral Valve E/A Ratio: 0.8 MV Decel. Time: 4527.68 ms MV E Max Amandeep.: 0.61 m/s MV A Amandeep.: 0.75 m/s MV PHT: 1313.03 ms IVRT: 58.82 ms Pulmonary Valve PV Peak Amandeep.: 1.06 m/s PV Peak Gr.: 4.49 mmHg Pulmonary Vein P Vein A: 0.38 m/s P Vein A Dur.: 133.8 msec Tricuspid Valve TR Peak Amandeep.: 2.20 m/s RAP Estimate: 7.00 mmHg TR Peak Gr.: 19.33 mmHg RVSP: 26.00 mmHg Left Ventricle The left ventricle is normal size. There is normal LV segmental wall motion. Mild concentric left ventricular hypertrophy. Left ventricular systolic function is normal. The left ventricular ejection fraction is within the normal range. LVEF is 60-65%. This study is not technically sufficient to allow evaluation of the LV diastolic function. Right Ventricle The right ventricle is normal size. The right ventricular systolic function is normal. Atria The left atrium size is normal. The right atrium size is normal. Aortic Valve Aortic valve is trileaflet. No aortic regurgitation is present. There is no aortic valvular stenosis. Mitral Valve The mitral valve is normal in structure. Trace to mild mitral regurgitation. No evidence of mitral valve stenosis. [facility] [employer] [place] [address] 2 D/M-MODE ECHOCARDIOGRAM Name: CORETTA ENNIS Room #: 240-P [facility] IN ..#: [id number] Admission: 09/16/21 Attend Phys: Ayo Marcus MD Discharge: Date of : 65 Report #: [id number] Tricuspid Valve The tricuspid valve is normal in structure. Trace tricuspid regurgitation. PAP 26 mmHg Pulmonic Valve The pulmonary valve is normal in structure. There is no pulmonic valvular regurgitation. Great Vessels The aortic root is normal in size. IVC is normal in size and collapses >50% with inspiration. Pericardium There is no pericardial effusion. <Conclusion> The left ventricle is normal size. Mild concentric left ventricular hypertrophy. LVEF is 60-65%. The right ventricle is normal size. The left atrium size is normal. Aortic valve is trileaflet. The mitral valve is normal in structure. Trace to mild mitral regurgitation. The tricuspid valve is normal in structure. Trace tricuspid regurgitation. PAP 26 mmHg The pulmonary valve is normal in structure. The aortic root is normal in size. There is no pericardial effusion. <ELECTRONICALLY SIGNED> By: Mickey Perkins MD 09/17/21 1015 1015 [id number] Mickey Perkins MD /INF
--- NOTE | 2021-09-17 14:41 | NUR ---
Case discussed in ICU rounds this morning. Pt down for EGD. Possible transfer out of ICU possible later today. She remains on iv atb with elev wbc's. DKA is improved. No weekend dc anticipated. Cm to f/u with pt's pharmacy [place] regarding her med delivery. Pt is reporting all of her medications where in the apt and she does not have access as she was evicted. Will follow.
--- NOTE | 2021-09-18 05:14 | NUR ---
NO ACUTE EVENTS THIS SHIFT. PT ASLEEP THROUGHOUT SHIFT PT INTERMITTENTLY WILLING TO ANSWER QUESTIONS- IS ORIENTED X4. BS 109 AT HOUR OF SLEEP. PT EDUCATED ON PAIN MANAGEMENT AND PLAN OF CARE
[2021-09-18 06:10] LABS: ABSOLUTE NEUTROPHILS 9.3 thou/uL (1.4-8.2); BASOPHILS 0.4 % (0.0-2.0); EOSINOPHILS 0.2 % (0.0-3.0); LYMPHOCYTES 21.5 % (24.0-44.0); MCHC 31.7 g/dL (28.0-37.0); MCV 88.5 fL (80.0-100.0); MONOCYTES 4.5 % (1.0-8.0); PLATELET COUNT 272 thou/uL (150-400); POLYS 73.4 % (36.0-66.0); RBC 2.49 mil/uL (4.20-5.00); RDW 19.9 % (10.5-14.5)
[2021-09-18 06:20] LABS: WBC 12.6 thou/uL (4.0-11.0)
[2021-09-18 06:22] LABS: ALBUMIN 2.1 g/dL (3.4-5.0); ANION GAP 9 mmol/L (7-16); BUN 7 mg/dL (7-18); CALCIUM 7.8 mg/dL (8.5-10.1); CHLORIDE 105 mmol/L (98-107); CO2 25 mmol/L (21-32); GLUCOSE 191 mg/dL (74-106); POTASSIUM 3.3 mmol/L (3.5-5.1); SGOT 14 U/L (15-37); SGPT 8 U/L (30-65); SODIUM 139 mmol/L (136-145); TOTAL BILIRUBIN < 0.1 mg/dL (0.2-1.0); TOTAL PROTEIN 5.2 g/dL (6.4-8.2)
[2021-09-18 07:45] VITALS: BP 135/76
[2021-09-18 11:05] VITALS: BP 135/76
[2021-09-18 12:23] VITALS: BP 142/86
[2021-09-18 13:07] LABS: CD4 % 22.8 % (30.8-58.5); CD4:CD8 0.45 (0.92-3.72)
[2021-09-18 15:56] VITALS: BP 149/84
[2021-09-18 15:59] VITALS: BP 149/84
--- NOTE | 2021-09-18 17:17 | NUR ---
Patient resting in bed, bishop catheter removed, patient voided per bedside commode, had a bed bath, eating about 50-70 % of meals. Tylenol given prn for pain-generalized and throat pain. call light within reach, will continous monitoring.
[2021-09-18 19:55] VITALS: BP 148/86
--- NOTE | 2021-09-19 05:10 | NUR ---
patient aox4 makes needs known. patient offered snack and fluid throughout the shift. patient uses a bedside commode, pericare and barrier cream applied as needed. patient says stuff like she cant move her body she is in so much pain, when snacks are brought patient would sit up and eats with no s/s of pain or discomfort and denies pain. fall precaution in place. patient in bed asleep at this time breathing regular and unlaboured.
[2021-09-19 05:19] LABS: HEMATOCRIT 21.2 % (37.0-47.0); MCH 28.4 pg (26.0-34.0); MCHC 32.9 g/dL (28.0-37.0); MCV 86.4 fL (80.0-100.0); RBC 2.46 mil/uL (4.20-5.00); RDW 19.9 % (10.5-14.5); WBC 8.1 thou/uL (4.0-11.0)
[2021-09-19 05:30] LABS: ALBUMIN 2.1 g/dL (3.4-5.0); CALCIUM 7.7 mg/dL (8.5-10.1); CREATININE 0.9 mg/dL (0.6-1.0); PHOSPHORUS 2.4 mg/dL (2.5-4.9); POTASSIUM 3.9 mmol/L (3.5-5.1)
[2021-09-19 07:30] VITALS: BP 194/102
--- NOTE | 2021-09-19 16:05 | NUR ---
Patient is A&Ox4 upon assessment. Patient voicing nausea and overall feeling "bad". Patient was given scheduled antinausea medication with little to no relief. Patient is SBA to BS. Patient FSBS still elevated. Denying pain so far. Fall precautions remain in place
--- NOTE | 2021-09-19 19:37 | NUR ---
High bp addressed by hospitalist. Patient is now taking BP medication. Educated on side effects & orthostatic hypotension risk.
[2021-09-19 19:47] VITALS: BP 163/95
--- NOTE | 2021-09-20 04:57 | NUR ---
PT IS ALERT AND ORIENTED. C/O NAUSEA AND BACK PAIN. MEDS GIVEN WITH RELIEF. VOIDING PER BSC, SHE IS WEAK,CALLS FOR HELP BUT IS ALSO IMPULSIVE. AFEBRILE.ROOM AIR.
[2021-09-20 07:59] VITALS: BP 144/90
[2021-09-20 08:22] VITALS: BP 144/90
[2021-09-20 12:10] VITALS: BP 146/96
[2021-09-20 16:22] VITALS: BP 140/72
--- NOTE | 2021-09-20 17:39 | NUR ---
Patient does not have a phone. She does not knoe Scout new phone number. The number on file he no longer has that phone. Rec call from Marleny [phone] Jimbo Atkinson brick washer. She reports a document came to their office from her insurance noting she was in hospital. Updated that patient has been evicted and cannot obtain her medications. She reports she will inquire with housing voucher to determine details. She was planning to leave her card on evicted door but while speaking Scout called patient in room. Was able to sp with Scout [phone]. He reports they plan to dc to Scout son [address] Sp with [facility] pharmacy who reports they sp with Scout as well since patient with no phone. [facility] reports struggle as patient does not answer phone when had a phone, she did not return calls. They were unable to deliver medications as she is noncompliant. faxed [facility] current medication list to review. Plan dc in am to address. Patient working with therapy to gain strength. If patient cannot retrieve medications [facility] reports with her insurance you have one time per year to have prescription ordered when not time for renewal.
[2021-09-20 22:22] VITALS: BP 140/89
--- NOTE | 2021-09-21 02:01 | NUR ---
Pt felt alittle nervous at the start of shift because she lost her PIV. Tylenol given for back pain.Pt still c/o stomach discomfort.afebrile.
--- NOTE | 2021-09-21 05:49 | NUR ---
multiple attempts to start PIV. Chuck Splitter and RN from other unit also tried with fail. Will defer to IV team in the morning.
[2021-09-21 08:35] VITALS: BP 171/111
[2021-09-21 12:04] VITALS: BP 118/74
--- NOTE | 2021-09-21 12:07 | NUR ---
Met with patient and offered cab ride to address today. Discussed dc today. patient reports staff last night tried to insert new IV. She reports they tried until 3 am and she got absolutely no sleep. She reports they never started the IV. She has pain and is nauseated. She cannot dc home. Also mentions her blood pressure high. Updated phys.
[2021-09-21 16:15] VITALS: BP 137/83
--- NOTE | 2021-09-21 18:10 | NUR ---
patient is resting in bed, complained about her belly hurt, nauseate, but no vomitted, ate 95 to 100 % meals. Patient is very hard stick, no iv, notified Hospitalist, got medication to oral. calll light within reach.
[2021-09-21 19:08] VITALS: BP 151/88
[2021-09-22 04:01] VITALS: BP 144/85
--- NOTE | 2021-09-22 05:22 | NUR ---
ASSUMED PT CARE THIS PM. PT IS ALERT AND ORIENTED X. PT DID NOT C/O N/V. MEDS WERE GIVEN PER EMAR ORDERS. PT DID N0T VERBALIZE ANY CONCERNS.PT IS ON RA. FALL PRECAUTIONS IN PLACE. WILL CONTINUE TO MONITOR.
[2021-09-22 07:44] VITALS: BP 165/68
[2021-09-22] MEDS ORDERED: FLUCONAZOLE 10100 MG PO (11:12)
[2021-09-22] MEDS ORDERED: VALTREX 500 MG500 MG PO (11:12)
[2021-09-22] MEDS ORDERED: LANTUS SUBQ (11:14)
--- NOTE | 2021-09-22 12:18 | NUR ---
ASSUMED CARE THIS AM WITH NO COMPLAINTS OF PAIN OR N/V. PATIENT SITTING SIDE OF BED WAITING FOR BREAKFAST TO BE DELIVERED. PATIENT IS UNDERSTOOD THAT SHE WILL BE DISCHARGED TODAY, BUT REQUESTED IF SHE COULD WAIT TILL AFTER LUNCH. DISCHARGE IS IN AND CAB VOUCHER READY FOR HER TO DEPART.
[2021-09-22 13:20] VITALS: BP 165/68
[2021-09-22] MEDS ORDERED: AUGMENTIN875 PO (13:33)
--- NOTE | 2021-09-22 13:57 | NUR ---
Plan nv today. Cab voucher for new address completed. Faxed prescriptions given to this casemgr to [facility] as well nv paperwork. Sp with [facility] they rec all information and sp with RN and have everythind needed for dc. [facility]. [phone]. [facility] packages her precritions in bubble wrap and delivers. They have new address on file for patient. Updated Marleny her Jimbo Atkinson skilled laborer of nv home. She plans to make a home visit
== END 2021-09-22 14:12 | disposition home or self-care (01) | DRG 871 ==
LOC: ER 02:05 → ICU 04:00 → EROBS 04:00 → 4S 04:00 → ICU 05:28 → 4S 09-17 18:19
PROVIDERS: Emergency Medicine; Hospitalist; Nurse Practitioner; Nurse Practitioner Family; Specialist; ADMIT Hospitalist; ATTEND Hospitalist
PROC: 0DJ08ZZ Inspection of Upper Intestinal Tract, Via Natural or Artificial Opening Endoscopic (ICD-10-PCS; principal; 2021-09-17)
DX: A41.9 Sepsis, unspecified organism (principal); E11.10 Type 2 diabetes mellitus with ketoacidosis without coma; G93.41 Metabolic encephalopathy; K20.91 Esophagitis, unspecified with bleeding; N17.9 Acute kidney failure, unspecified; E87.1 Hypo-osmolality and hyponatremia; K92.0 Hematemesis; D62 Acute posthemorrhagic anemia; E46 Unspecified protein-calorie malnutrition; K21.9 Gastro-esophageal reflux disease without esophagitis; R65.20 Severe sepsis without septic shock; E11.319 Type 2 diabetes mellitus with unspecified diabetic retinopathy without macular edema; F32.9 Major depressive disorder, single episode, unspecified; E87.5 Hyperkalemia; E11.65 Type 2 diabetes mellitus with hyperglycemia; F14.90 Cocaine use, unspecified, uncomplicated; D64.9 Anemia, unspecified; F19.10 Other psychoactive substance abuse, uncomplicated; K59.00 Constipation, unspecified; Z20.822 Contact with and (suspected) exposure to COVID-19; Z88.2 Allergy status to sulfonamides; Z88.8 Allergy status to other drugs, medicaments and biological substances; Z68.20 Body mass index [BMI] 20.0-20.9, adult
CPT/HCPCS: 10078; 10100; 10195; 50455; 62110; 62900; 70005